=== PATIENT | female | born 1945 | race Caucasian/White ===

== ENCOUNTER 2024-11-06 15:35 | Inpatient (IN) | payer MEDICARE ==
--- NOTE | 2024-11-06 16:11 | ED ---
General Adult HPI - General Chief complaint: Shortness of Breath Stated complaint: SOB Time Seen by Provider: 11/06/24 15:51 Source: patient, EMS, RN notes reviewed, old records reviewed Mode of arrival: EMS Limitations: no limitations - History of Present Illness Initial comments: -year-old female presenting for evaluation of weakness, dyspnea. Patient has a history of congestive heart failure. She states she woke today with cough, dyspnea, mild frontal headache and subjective fever and chills. No central chest pain. - Related Data Allergies Allergy/AdvReac Type Severity Reaction Status Date / Time cephalexin [From Keflex] AdvReac Rash/Hives Verified 11/06/24 15:46 Review of Systems ROS Statement: Those systems with pertinent positive or pertinent negative responses have been documented in the HPI. ROS Other: All systems not noted in ROS Statement are negative. Past Medical History Past Medical History: Atrial Fibrillation, Heart Failure, Hypertension Past Surgical History: Orthopedic Surgery Additional Past Surgical History / Comment(s): bilat lumpectomy Past Psychological History: No Psychological Hx Reported Smoking Status: Never smoker Past Alcohol Use History: None Reported Past Drug Use History: None Reported General Exam Limitations: no limitations General appearance: alert, in no apparent distress Head exam: Present: atraumatic, normocephalic Eye exam: Present: normal appearance, PERRL ENT exam: Present: normal exam Neck exam: Present: normal inspection. Absent: tenderness, meningismus Respiratory exam: Present: rales. Absent: respiratory distress, rhonchi Cardiovascular Exam: Present: regular rate, normal rhythm GI/Abdominal exam: Present: soft. Absent: distended, tenderness Extremities exam: Present: other (Chronic venous stasis) Neurological exam: Present: alert, oriented X3, CN II-XII intact. Absent: motor sensory deficit Psychiatric exam: Present: normal affect, normal mood Skin exam: Present: warm, dry, intact. Absent: cyanosis, diaphoretic Course Vital Signs 11/06/24 11/06/24 15:37 15:50 Temperature 99.5 F Pulse Rate 85 Respiratory 30 H Rate O2 Sat by Pulse 93 L 92 L Oximetry Medical Decision Making - Medical Decision Making Was pt. sent in by a medical professional or institution (, PA, ETHNOLOGY TEACHER, urgent care, hospital, or residential...) When possible be specific @ -No Did you speak to anyone other than the patient for history (EMS, parent, family, police, friend...)? What history was obtained from this source @ -No Did you review nursing and triage notes (agree or disagree)? Why? @ -I reviewed and agree with nursing and triage notes Were old charts reviewed (outside hosp., previous admission, EMS record, old EKG, old radiological studies, urgent care reports/EKG's, residential records)? Report findings @ -No old charts were reviewed Differential Weakness: Hypoglycemia, shock, sepsis, hyponatremia, anemia, infection, [place], ETOH, adverse medicine reaction, overdose, stroke, this is not meant to be an all-inclusive list. EKG interpreted by me (3pts min.). @Sinus rhythm with a first-degree AV block, incomplete right bundle branch block, rate of 72, NC interval 261, QRS duration 109, QTc [address] segment elevation. X-rays interpreted by me (1pt min.). @ -Chest x-ray negative for consolidated pneumonia, consistent with CHF with pulmonary edema CT interpreted by me (1pt min.). @ -None done U/S interpreted by me (1pt. min.). @ -None done What testing was considered but not performed or refused? (CT, X-rays, U/S, labs)? Why? @ -None What meds were considered but not given or refused? Why? @ -None Did you discuss the management of the patient with other professionals (professionals i.e. , PA, ETHNOLOGY TEACHER, lab, RT, psych nurse, manager social responsibility, vp of product, teacher, appeals officer, case liner)? Give summary @ -Sound physician group Was smoking cessation discussed for >3mins.? @ -No Was critical care preformed (if so, how long)? @ -No Were there social determinants of health that impacted care today? How? (Homelessness, low income, unemployed, alcoholism, drug addiction, transportation, low edu. Level, literacy, decrease access to med. care, fdc, rehab)? @ -No Was there de-escalation of care discussed even if they declined (Discuss DNR or withdrawal of care, Hospice)? DNR status @ -No What co-morbidities impacted this encounter? (DM, HTN, Smoking, COPD, CAD, Cancer, CVA, ARF, Chemo, Hep., AIDS, mental health diagnosis, sleep apnea, morbid obesity)? @CHF Was patient admitted / discharged? Hospital course, mention meds given and route, prescriptions, significant lab abnormalities, going to OR and other pertinent info. @ --year-old78 female presenting with increased dyspnea history of CHF. Patient has bilateral venous stasis, she does have increased oxygen utilization. Elevated BNP at 4000, chest x-ray consistent with CHF. Patient admitted for IV diuresis. Undiagnosed new problem with uncertain prognosis? @ -No Drug Therapy requiring intensive monitoring for toxicity (Heparin, Nitro, Insulin, Cardizem)? @ -No Were any procedures done? @ -No Diagnosis/symptom? @ -[ CHF Acute, or Chronic, or Acute on Chronic? @ -Acute on chronic Uncomplicated (without systemic symptoms) or Complicated (systemic symptoms)? @ -Default Side effects of treatment? @ -No Exacerbation, Progression, or Severe Exacerbation? @ -No Poses a threat to life or bodily function? How? (Chest pain, [place], [place], pneumonia, PE, COPD, DKA, ARF, appy, cholecystitis, CVA, Diverticulitis, Homicidal, Suicidal, threat to staff... and all critical care pts) @ -Yes, CHF - Lab Data Result diagrams: 11/06/24 15:49 11/06/24 15:49 Lab Results 11/06/24 11/06/24 11/06/24 Range/Units 15:49 15:49 15:49 WBC 12.84 H (4.50-10.00) 10*3/uL RBC 4.93 (4.10-5.20) 10*6/uL Hgb 17.1 H (12.0-15.0) g/dL Hct 49.4 H (37.2-46.3) % MCV 100.2 H (80.0-97.0) fL MCH 34.7 H (27.0-32.0) pg MCHC 34.6 (32.0-37.0) g/dL Plt Count 151 (140-440) 10*3/uL MPV 10.2 (9.5-12.2) fL Immature Gran % (Auto) 0.5 % Neutrophils % 86.1 % Lymphocytes % 6.7 % Monocytes % 6.0 % Eosinophils % 0.3 % Basophils % 0.4 % Immature Gran # 0.06 H (0.00-0.04) 10*3/uL Neutrophils # 11.06 H (1.80-7.70) 10*3/uL Lymphocytes # 0.86 L (0.90-5.00) 10*3/uL Monocytes # 0.77 (0.20-1.00) 10*3/uL Eosinophils # 0.04 (0.04-0.35) 10*3/uL Basophils # 0.05 (0.00-0.10) 10*3/uL PT 11.5 (10.0-12.5) sec INR 1.1 (<1.2) APTT 25.6 (22.0-30.0) sec Sodium 141 (137-145) mmol/L Potassium 4.7 (3.5-5.1) mmol/L Chloride 105 (98-107) mmol/L Carbon Dioxide 29 (22-30) mmol/L Anion Gap 7 mmol/L BUN 22 H (7-17) mg/dL Creatinine 1.16 H (0.52-1.04) mg/dL Est GFR (CKD-EPI)AfAm 53 (>60 ml/min/1.73 sqM) Est GFR (CKD-EPI)NonAf 46 (>60 ml/min/1.73 sqM) Glucose 111 H (74-99) mg/dL Plasma Lactic Acid Simón (0.7-2.0) mmol/L Calcium 9.1 (8.4-10.2) mg/dL Magnesium 1.9 (1.6-2.3) mg/dL Total Bilirubin 1.5 H (0.2-1.3) mg/dL AST 29 (14-36) U/L ALT 21 (4-34) U/L Alkaline Phosphatase 86 (38-126) U/L Troponin I (0.000-0.034) ng/mL NT-Pro-B Natriuret Pep 4340 pg/mL Total Protein 7.7 (6.3-8.2) g/dL Albumin 4.2 (3.5-5.0) g/dL Influenza Type A (PCR) (Not Detectd) Influenza Type B (PCR) (Not Detectd) RSV (PCR) (Not Detectd) SARS-CoV-2 (PCR) (Not Detectd) 11/06/24 11/06/24 11/06/24 Range/Units 15:49 16:16 16:16 WBC (4.50-10.00) 10*3/uL RBC (4.10-5.20) 10*6/uL Hgb (12.0-15.0) g/dL Hct (37.2-46.3) % MCV (80.0-97.0) fL MCH (27.0-32.0) pg MCHC (32.0-37.0) g/dL Plt Count (140-440) 10*3/uL MPV (9.5-12.2) fL Immature Gran % (Auto) % Neutrophils % % Lymphocytes % % Monocytes % % Eosinophils % % Basophils % % Immature Gran # (0.00-0.04) 10*3/uL Neutrophils # (1.80-7.70) 10*3/uL Lymphocytes # (0.90-5.00) 10*3/uL Monocytes # (0.20-1.00) 10*3/uL Eosinophils # (0.04-0.35) 10*3/uL Basophils # (0.00-0.10) 10*3/uL PT (10.0-12.5) sec INR (<1.2) APTT (22.0-30.0) sec Sodium (137-145) mmol/L Potassium (3.5-5.1) mmol/L Chloride (98-107) mmol/L Carbon Dioxide (22-30) mmol/L Anion Gap mmol/L BUN (7-17) mg/dL Creatinine (0.52-1.04) mg/dL Est GFR (CKD-EPI)AfAm (>60 ml/min/1.73 sqM) Est GFR (CKD-EPI)NonAf (>60 ml/min/1.73 sqM) Glucose (74-99) mg/dL Plasma Lactic Acid Simón 1.3 (0.7-2.0) mmol/L Calcium (8.4-10.2) mg/dL Magnesium (1.6-2.3) mg/dL Total Bilirubin (0.2-1.3) mg/dL AST (14-36) U/L ALT (4-34) U/L Alkaline Phosphatase (38-126) U/L Troponin I 0.026 (0.000-0.034) ng/mL NT-Pro-B Natriuret Pep pg/mL Total Protein (6.3-8.2) g/dL Albumin (3.5-5.0) g/dL Influenza Type A (PCR) Not Detected (Not Detectd) Influenza Type B (PCR) Not Detected (Not Detectd) RSV (PCR) Not Detected (Not Detectd) SARS-CoV-2 (PCR) Not Detected (Not Detectd) Disposition Clinical Impression: Congestive heart failure Disposition: ADMITTED IP TO THIS [facility] Condition: Stable Is patient prescribed a controlled substance at d/c from ED?: No Referrals: Carlos Cordero DO [Primary Care Provider] - 1-2 days Time of Disposition: 17:08
[2024-11-06 16:24] LABS: Basophils # (A) 0.05 10*3/uL (0.00-0.10); Basophils % (A) 0.4 %; Eosinophils # (A) 0.04 10*3/uL (0.04-0.35); Eosinophils % (A) 0.3 %; HCT 49.4 % (37.2-46.3); HGB 17.1 g/dL (12.0-15.0); Lymphocytes # (A) 0.86 10*3/uL (0.90-5.00); Lymphocytes % (A) 6.7 %; MCH 34.7 pg (27.0-32.0); MCHC 34.6 g/dL (32.0-37.0); MCV 100.2 fL (80.0-97.0); Mean Platelet Volume 10.2 fL (9.5-12.2); Monocytes # (A) 0.77 10*3/uL (0.20-1.00); Neutrophils # (A) 11.06 10*3/uL (1.80-7.70); Neutrophils % (A) 86.1 %; Platelet Count 151 10*3/uL (140-440); RBC 4.93 10*6/uL (4.10-5.20); RDW 13.3 % (11.5-14.5); WBC 12.84 10*3/uL (4.50-10.00)
[2024-11-06 16:33] LABS: INR 1.1 (<1.2); Partial Thromboplastin Time 25.6 sec (22.0-30.0); Prothrombin Time 11.5 sec (10.0-12.5)
[2024-11-06 16:36] LABS: ALT 21 U/L (4-34); AST 29 U/L (14-36); African American GFR (CKD) 53 (>60 ml/min/1.73 sqM); Albumin 4.2 g/dL (3.5-5.0); Alkaline Phosphatase 86 U/L (38-126); Anion Gap 7 mmol/L; Blood Urea Nitrogen 22 mg/dL (7-17); Calcium 9.1 mg/dL (8.4-10.2); Carbon Dioxide 29 mmol/L (22-30); Chloride 105 mmol/L (98-107); Glucose 111 mg/dL (74-99); Magnesium 1.9 mg/dL (1.6-2.3); Non-African American GFR(CKD) 46 (>60 ml/min/1.73 sqM); Potassium 4.7 mmol/L (3.5-5.1); Sodium 141 mmol/L (137-145); Total Bilirubin 1.5 mg/dL (0.2-1.3); Total Protein 7.7 g/dL (6.3-8.2)
--- NOTE | 2024-11-06 16:36 | XR ---
EXAMINATION TYPE: XR chest 2V DATE OF EXAM: 11/06/2024 4:29 PM COMPARISON: None. CLINICAL INDICATION: Female, 78 years old with history of difficulty breathing, TECHNIQUE: XR chest 2V view(s) obtained. FINDINGS: The heart size is normal. The pulmonary vasculature is somewhat prominent. Diffuse mild increased lung markings are present. Correlate for pulmonary edema.. IMPRESSION: 1. Clinical correlation recommended for congestive heart failure. Follow-up can be performed. [facility], , 11/06/2024 4:34 PM
[2024-11-06] MEDS: ACETAMINOPHEN TAB 500 MG TAB PO STA (16:41)
[2024-11-06 16:44] LABS: NT-Pro-B-Type Natriuretic Pept 4340 pg/mL
[2024-11-06 17:00] LABS: Influenza A Not Detected (Not Detectd); Influenza B Not Detected (Not Detectd); RSV Not Detected (Not Detectd)
[2024-11-06] MEDS ORDERED: NALOXONE 0.4 MG/ML 1 ML VIAL IV PRN ×2 (17:04→17:40)
[2024-11-06] MEDS: FUROSEMIDE 10 MG/ML 4 ML VIAL IV STA (17:48)
--- NOTE | 2024-11-06 18:19 | P.HPIM ---
History of Present Illness H&P Date: 11/06/24 Chief Complaint: CHF exacerbation Patient is a [] 78-year-old female with a past medical history of congestive heart failure, atrial fibrillation anticoagulated on Eliquis, hypertension, depression, H/O breast cancer s/p lumpectomy and radiation who presented to the ED for shortness of breath chills and fever. She denies chest pain but does endorse leg swelling. States symptoms have been ongoing since yesterday and she had felt more fatigued than usual. She has been compliant with her diuretics. She follows with custom tailor apprentice Dr. Rodriguez and states she had a echo and stress test done a few months ago at his office. Vitals in the ED showed temperature of 99.5 Fahrenheit pulse of 85, respiratory rate of 30, and blood pressure of 129/60, oxygen saturation 93% on room air. Pertinent labs included WBC of 12.8, hemoglobin 17.1, platelets 151, sodium 141, potassium 4.7, creatinine 1.16, GFR 53, total bilirubin 1.5, troponins 0.026, BNP 4340, respiratory panel was negative. Chest x-ray which was independently reviewed by me shows pulmonary congestion consistent with edema. Patient was given 1 dose of IV Lasix 40 mg and will be admitted to the internal medicine service for IV diuresis Pertinent positives and negatives as discussed in HPI, a complete review of systems was performed and all other systems are negative. Patient seen and examined at bedside. Vital signs reviewed General: nontoxic, no distress, appears at stated age, on 2L NC O2 Derm: warm, dry Head: atraumatic, normocephalic, symmetric Eyes: EOMI, no lid lag, anicteric sclera, pupils equal round reactive to light ENT: Nose and ears atraumatic Neck: No thyromegaly, supple Mouth: no lip lesion, mucus membranes moist Cardiovascular: S1S2 reg, no murmur, no edema Lungs: diminished breath sounds, no rhonchi, no rales, no wheeze, no accessory muscle use Abdominal: soft, nontender to palpation, no guarding, no appreciable organomegaly Ext: Chronic venous dermatitis, 2+ pitting edema bilaterally Neuro: CN II-XII grossly intact Psych: Alert, oriented, appropriate affect Assessment/Plan: Acute heart failure exacerbation Cardiology consulted, given 1 dose of IV Lasix 40 mg in the ED we will continue with IV Lasix 40 mg every 12 hours Continue GDMT, on Farxiga lisinopril metoprolol Daily weights monitor I/O's Fluid and salt restriction advised Leukocytosis: No objective fever, chest x-ray not indicated of pneumonia, respiratory panel negative Will check UA and procalcitonin Elevated creatinine: Unclear if this is XIOMARA vs CKD -Careful diuresis -Repeat CMP in the AM -Avoid nephrotoxins Atrial fibrillation: Continue metoprolol and Eliquis Hypertension: Continue lisinopril metoprolol Depression: Continue sertraline and buspirone History of breast cancer status postlumpectomy and radiation: Continue anastrozole The patient is admitted with an anticipated greater than 2 midnight stay as [inpatient/observation] status for evaluation of CHF exacerbation. Surrogate decision-maker: CODE STATUS: full code DVT prophylaxis: Eliquis Anticipated discharge date: Pending clinical course Anticipated discharge place: Pending clinical course A total of 40 minutes was spent on the care of this complex patient more than 50% of the time was spent in counseling and care coordination. Past Medical History Past Medical History: Atrial Fibrillation, Heart Failure, Hypertension Past Surgical History: Orthopedic Surgery Additional Past Surgical History / Comment(s): bilat lumpectomy Past Psychological History: No Psychological Hx Reported Smoking Status: Never smoker Past Alcohol Use History: None Reported Past Drug Use History: None Reported Medications and Allergies Home Medications Medication Instructions Recorded Confirmed Type Anastrozole [Arimidex] 1 mg PO DAILY 11/06/24 11/06/24 History Apixaban [Eliquis] 2.5 mg PO BID 11/06/24 11/06/24 History Calcium Carbonate [Calcium] 600 mg PO DAILY 11/06/24 11/06/24 History Empagliflozin [Jardiance] 10 mg PO DAILY 11/06/24 11/06/24 History Furosemide [Lasix] 40 mg PO DAILY 11/06/24 11/06/24 History Metoprolol Succinate (ER) [Toprol 100 mg PO BID 11/06/24 11/06/24 History Xl] Multivitamins, Thera [Multivitamin 1 tab PO DAILY 11/06/24 11/06/24 History (formulary)] Potassium Chloride ER [K-Dur 20] 20 meq PO BID 11/06/24 11/06/24 History Sertraline [Zoloft] 100 mg PO DAILY 11/06/24 11/06/24 History busPIRone HCL 22.5 mg PO BID 11/06/24 11/06/24 History lisinopriL 10 mg PO DAILY 11/06/24 11/06/24 History Allergies Allergy/AdvReac Type Severity Reaction Status Date / Time cephalexin [From [employer]] Allergy Rash/Hives Verified 11/06/24 17:55 Physical Exam Vitals: Vital Signs Temp Pulse Resp BP Pulse Ox 11/06/24 17:24 98.9 F 74 20 129/60 95 11/06/24 15:50 92 L 11/06/24 15:37 99.5 F 85 30 H 93 L Intake and Output 11/06/24 11/06/24 11/06/24 06:59 14:59 22:59 Other: Weight 131.542 kg Results CBC & Chem 7: 11/06/24 15:49 11/06/24 15:49 Labs: Abnormal Lab Results - Last 24 Hours (Table) 11/06/24 11/06/24 Range/Units 15:49 15:49 WBC 12.84 H (4.50-10.00) 10*3/uL Hgb 17.1 H (12.0-15.0) g/dL Hct 49.4 H (37.2-46.3) % MCV 100.2 H (80.0-97.0) fL MCH 34.7 H (27.0-32.0) pg Immature Gran # 0.06 H (0.00-0.04) 10*3/uL Neutrophils # 11.06 H (1.80-7.70) 10*3/uL Lymphocytes # 0.86 L (0.90-5.00) 10*3/uL BUN 22 H (7-17) mg/dL Creatinine 1.16 H (0.52-1.04) mg/dL Glucose 111 H (74-99) mg/dL Total Bilirubin 1.5 H (0.2-1.3) mg/dL
[2024-11-06 18:33] LABS: Appearance,Urine Clear (Clear); Bilirubin,Urine Negative (Negative); Blood,Urine Negative (Negative); Color,Urine Colorless; Glucose,Urine (UA) 4+ (Negative); Ketones,Urine Negative (Negative); Leukocyte Esterase,Urine Negative (Negative); Nitrite,Urine Negative (Negative); PH, Urine 6.5 (5.0-8.0); Protein,Urine Negative (Negative); Specific Gravity,Urine 1.011 (1.001-1.035); Urobilinogen,Urine <2.0 mg/dL (<2.0)
[2024-11-06] MEDS: METOPROLOL SUCCINATE (ER) 100 MG TAB.ER.24H PO SCH (21:58)
[2024-11-06] MEDS: FUROSEMIDE 10 MG/ML 4 ML VIAL IV SCH (21:58)
[2024-11-06] MEDS: busPIRone HCl 10 MG TAB PO SCH (21:58)
[2024-11-06] MEDS: APIXABAN 5 MG TAB PO SCH (21:59)
[2024-11-06] MEDS: ACETAMINOPHEN TAB 325 MG TAB PO PRN (22:12)
[2024-11-06] MEDS: ONDANSETRON 4 MG/2 ML VIAL IVP PRN (22:18)
[2024-11-07] MEDS: ALBUMIN HUMAN 25% 50 ML in EMPTY BAG 1 BAG IVPB SCH (03:37)
[2024-11-07 07:54] LABS: Basophils # (A) 0.04 10*3/uL (0.00-0.10); Basophils % (A) 0.3 %; Eosinophils # (A) 0.02 10*3/uL (0.04-0.35); Eosinophils % (A) 0.1 %; HCT 44.7 % (37.2-46.3); Lymphocytes # (A) 0.73 10*3/uL (0.90-5.00); Lymphocytes % (A) 4.9 %; MCH 34.3 pg (27.0-32.0); MCHC 33.6 g/dL (32.0-37.0); MCV 102.3 fL (80.0-97.0); Mean Platelet Volume 9.9 fL (9.5-12.2); Monocytes # (A) 0.86 10*3/uL (0.20-1.00); Monocytes % (A) 5.8 %; Neutrophils # (A) 13.08 10*3/uL (1.80-7.70); Neutrophils % (A) 88.4 %; Platelet Count 126 10*3/uL (140-440); RBC 4.37 10*6/uL (4.10-5.20); RDW 13.4 % (11.5-14.5)
[2024-11-07] MEDS: SERTRALINE 100 MG TAB PO SCH (08:08)
[2024-11-07] MEDS: lisinopriL 10 MG TAB PO SCH (08:08)
[2024-11-07] MEDS: DAPAGLIFLOZIN PROPANEDIOL 5 MG TABLET PO SCH (08:09)
[2024-11-07] MEDS: ANASTROZOLE 1 MG TAB PO SCH (08:10)
[2024-11-07 08:21] LABS: ALT 16 U/L (4-34); AST 21 U/L (14-36); African American GFR (CKD) 46 (>60 ml/min/1.73 sqM); Albumin 3.7 g/dL (3.5-5.0); Alkaline Phosphatase 63 U/L (38-126); Anion Gap 7 mmol/L; Blood Urea Nitrogen 25 mg/dL (7-17); Calcium 8.7 mg/dL (8.4-10.2); Carbon Dioxide 33 mmol/L (22-30); Chloride 99 mmol/L (98-107); Glucose 147 mg/dL (74-99); Magnesium 1.8 mg/dL (1.6-2.3); Non-African American GFR(CKD) 40 (>60 ml/min/1.73 sqM); Potassium 4.2 mmol/L (3.5-5.1); Sodium 139 mmol/L (137-145); Total Bilirubin 2.2 mg/dL (0.2-1.3); Total Protein 6.8 g/dL (6.3-8.2)
--- NOTE | 2024-11-07 12:08 | P.CRDCN ---
History of Present Illness History of present illness: HISTORY OF PRESENT ILLNESS: This is a 78-year-old female with a past medical history significant for breast cancer, hypertension, hyperlipidemia, and congestive heart failure. Patient fol layton in the office with Dr. Rodriguez. We have been asked to see the patient in consultation for CHF. Patient examined at the bedside. Patient presented to the hospital with a chief complaint of feeling tired and not having any energy. She also reports having shortness of breath. She denied any chest pain or pressure. Patient was found to be in acute CHF and was started on IV Lasix. She reports improvement in her breathing today. She reports that she saw her primary central office mechanic at the beginning of this year. She reports having a chemical stress test and an echocardiogram at the beginning of this year which were normal to her knowledge DIAGNOSTICS: - EKG reveals sinus mechanism with no signs of acute ischemia. - Chest xray clinical correlation recommended for congestive heart failure. - Laboratory data: WBC 14.80. Hemoglobin 15.0. Platelet count 126. Sodium 139. Potassium 4.2. BUN 25. Creatinine 1.30. proBNP 4340. Troponin negative x 1. - Current home cardiac medications include Lasix 40 mg daily, Eliquis 2.5 mg twice a day, Jardiance 10 mg daily, lisinopril 10 mg daily, metoprolol succinate 100 mg twice daily. - No previous echocardiogram, stress test, or cardiac catheterization available in EMR for review REVIEW OF SYSTEMS: At the time of my exam: CONSTITUTIONAL: Denies fever or chills. HEENT: Denies blurred vision, vision changes, or eye pain. Denies hemoptysis CARDIOVASCULAR: Denies chest pain. Denies orthopnea. Denies PND. Denies palpitations RESPIRATORY: Denies shortness of breath. GASTROINTESTINAL: Denies abdominal pain. Denies nausea or vomiting. HEMATOLOGIC: Denies bleeding disorders. GENITOURINARY: Denies any blood in urine. SKIN: Denies pruitis. Denies rash. PHYSICAL EXAM: VITAL SIGNS: Reviewed. GENERAL: Well-developed in no acute distress. HEENT: Head is normocephalic. Pupils are equal, round. Sclerae anicteric. Mucous membranes of the mouth are moist. Neck supple. No JVD or thyromegaly LUNGS: Respirations even and unlabored. Lungs diminished bilaterally HEART: Regular rate and rhythm. S1 and S2 heard. ABDOMEN: Soft. Nondistended. Nontender. EXTREMITIES: Normal range of motion. No clubbing or cyanosis. Peripheral pulses intact. No lower extremity edema NEUROLOGIC: Awake and alert. Oriented x 3. ASSESSMENT: Shortness of breath Acute on chronic heart failure, type unknown, suspect preserved EF, echo pending History of hypertension History of hyperlipidemia History of breast cancer with lumpectomy PLAN: Obtain 2D echo to assess cardiac structure and function Dr. Kirkpatrick recommends outpatient hematology evaluation Continue IV Lasix. Decrease dosage to 40 mg daily. Likely transition to oral diuretics tomorrow Daily weights, accurate intake and output, monitoring of kidney function Continue additional cardiac medications including Eliquis Farxiga and metoprolol Further recommendations pending patient course Nurse practitioner note has been reviewed by physician. Signing provider agrees with the documented findings, assessment, and plan of care documented by CONSULTING NURSE as a scribe. Past Medical History Past Medical History: Atrial Fibrillation, Cancer, Heart Failure, Hypertension Additional Past Medical History / Comment(s): breast cancer x2 2003 in the right breast, 2020 in the left. History of Any Multi-Drug Resistant Organisms: None Reported Past Surgical History: Orthopedic Surgery Additional Past Surgical History / Comment(s): bilat lumpectomy Past Psychological History: No Psychological Hx Reported Smoking Status: Never smoker Past Alcohol Use History: None Reported Past Drug Use History: None Reported Medications and Allergies Home Medications Medication Instructions Recorded Confirmed Type Anastrozole [Arimidex] 1 mg PO DAILY 11/06/24 11/06/24 History Apixaban [Eliquis] 2.5 mg PO BID 11/06/24 11/06/24 History Calcium Carbonate [Calcium] 600 mg PO DAILY 11/06/24 11/06/24 History Empagliflozin [Jardiance] 10 mg PO DAILY 11/06/24 11/06/24 History Furosemide [Lasix] 40 mg PO DAILY 11/06/24 11/06/24 History Metoprolol Succinate (ER) [Toprol 100 mg PO BID 11/06/24 11/06/24 History Xl] Multivitamins, Thera [Multivitamin 1 tab PO DAILY 11/06/24 11/06/24 History (formulary)] Potassium Chloride ER [K-Dur 20] 20 meq PO BID 11/06/24 11/06/24 History Sertraline [Zoloft] 100 mg PO DAILY 11/06/24 11/06/24 History busPIRone HCL 22.5 mg PO BID 11/06/24 11/06/24 History lisinopriL 10 mg PO DAILY 11/06/24 11/06/24 History Allergies Allergy/AdvReac Type Severity Reaction Status Date / Time cephalexin [From Keflex] Allergy Rash/Hives Verified 11/06/24 17:55 Physical Exam Vitals: Vital Signs Temp Pulse Pulse Resp BP BP Pulse Ox 11/07/24 06:50 100.2 F H 57 L 17 93/61 91 L 11/07/24 01:15 100.1 F H 72 18 99/58 95 11/06/24 19:45 98.9 F 67 18 122/62 95 11/06/24 19:13 72 20 100/74 97 11/06/24 17:24 98.9 F 74 20 129/60 95 11/06/24 15:50 92 L 11/06/24 15:37 99.5 F 85 30 H 93 L Intake and Output 11/06/24 11/07/24 11/07/24 22:59 06:59 14:59 Output Total 700 800 Balance -700 -800 Output: Urine 700 800 Other: Voiding Method External Catheter External Catheter External Catheter Weight 131.542 kg 133 kg Results 11/07/24 07:44 11/07/24 07:44 Cardiac Enzymes 11/06/24 11/06/24 11/07/24 Range/Units 15:49 15:49 07:44 AST 29 21 (14-36) U/L Troponin I 0.026 (0.000-0.034) ng/mL Coagulation 11/06/24 Range/Units 15:49 PT 11.5 (10.0-12.5) sec APTT 25.6 (22.0-30.0) sec CBC 11/06/24 11/07/24 Range/Units 15:49 07:44 WBC 12.84 H 14.80 H (4.50-10.00) 10*3/uL RBC 4.93 4.37 (4.10-5.20) 10*6/uL Hgb 17.1 H 15.0 (12.0-15.0) g/dL Hct 49.4 H 44.7 (37.2-46.3) % Plt Count 151 126 L (140-440) 10*3/uL Comprehensive Metabolic Panel 11/06/24 11/07/24 Range/Units 15:49 07:44 Sodium 141 139 (137-145) mmol/L Potassium 4.7 4.2 (3.5-5.1) mmol/L Chloride 105 99 (98-107) mmol/L Carbon Dioxide 29 33 H (22-30) mmol/L BUN 22 H 25 H (7-17) mg/dL Creatinine 1.16 H 1.30 H (0.52-1.04) mg/dL Glucose 111 H 147 H (74-99) mg/dL Calcium 9.1 8.7 (8.4-10.2) mg/dL AST 29 21 (14-36) U/L ALT 21 16 (4-34) U/L Alkaline Phosphatase 86 63 (38-126) U/L Total Protein 7.7 6.8 (6.3-8.2) g/dL Albumin 4.2 3.7 (3.5-5.0) g/dL Current Medications Generic Name Dose Route Start Last Admin Trade Name Freq PRN Reason Stop Dose Admin Acetaminophen 650 mg 11/06/24 17:04 11/07/24 08:08 Acetaminophen Tab 325 Mg Tab PO 650 mg Q6HR PRN Administration Mild Pain or Fever > 100.5 Anastrozole 1 mg 11/07/24 09:00 11/07/24 08:10 Anastrozole 1 Mg Tab PO 1 mg DAILY HUSSEIN Administration Apixaban 5 mg 11/06/24 21:00 11/07/24 08:08 Apixaban 5 Mg Tab PO 5 mg BID HUSSEIN Administration Protocol Buspirone HCl 22.5 mg 11/06/24 21:00 11/07/24 08:09 Buspirone Hcl 10 Mg Tab PO 22.5 mg BID HUSSEIN Administration Dapagliflozin 5 mg 11/07/24 09:00 11/07/24 08:09 Dapagliflozin Propanediol 5 Mg Tablet PO 5 mg DAILY HUSSEIN Administration Furosemide 40 mg 11/06/24 21:00 11/07/24 08:08 Furosemide 10 Mg/Ml 4 Ml Vial IV 40 mg Q12HR HUSSEIN Administration Lisinopril 10 mg 11/07/24 09:00 11/07/24 08:08 Lisinopril 10 Mg Tab PO 10 mg DAILY HUSSEIN Administration Metoprolol Succinate 100 mg 11/06/24 21:00 11/07/24 08:09 Metoprolol Succinate (Er) 100 Mg Tab.Er.24h PO 100 mg BID HUSSEIN Administration Naloxone HCl 0.2 mg 11/06/24 17:04 Naloxone 0.4 Mg/Ml 1 Ml Vial IV Q2M PRN Opioid Reversal Naloxone HCl 0.2 mg 11/06/24 17:40 Naloxone 0.4 Mg/Ml 1 Ml Vial IV Q2M PRN Opioid Reversal Ondansetron HCl 4 mg 11/06/24 22:16 11/06/24 22:18 Ondansetron 4 Mg/2 Ml Vial IVP 4 mg Q6H PRN Administration Nausea Sertraline HCl 100 mg 11/07/24 09:00 11/07/24 08:08 Sertraline 100 Mg Tab PO 100 mg DAILY HUSSEIN Administration Intake and Output 11/06/24 11/07/24 11/07/24 22:59 06:59 14:59 Output Total 700 800 Balance -700 -800 Output: Urine 700 800 Other: Voiding Method External Catheter External Catheter External Catheter Weight 131.542 kg 133 kg 11/07/24 07:44 11/07/24 07:44
--- NOTE | 2024-11-07 16:35 | P.PN ---
Subjective Progress Note Date: 11/07/24 Hospital course: Patient is a very pleasant 78-year-old female with a past medical history of congestive heart failure, paroxysmal atrial fibrillation anticoagulated on Eliquis, hypertension, depression, H/O breast cancer s/p lumpectomy and radiation who presented to the ED on 11/06/2024 for shortness of breath, bilateral lower extremity edema and fatigue. Patient reported she has been compliant with her diuretics and follows with life educator Dr. Rodriguez and states she had a echo and stress test done a few months ago at his office. Upon arrival to our facility, patient underwent evaluation in the emergency department. Vital signs on arrival show blood pressure 129/60, heart rate 85, respiratory rate 30, temp 99.5 F, and SpO2 of 93% on room air. EKG completed showing normal sinus rhythm at 72 bpm. Chest x-ray showing prominent pulmonary vasculature with diffuse mild increased lung markings consistent with pulmonary edema. Labs completed and reviewed. CBC showing leukocytosis with WBC count of 12.84, hemoglobin 17.1, hematocrit 49.4, MCV and MCH of 34.7. Of 100.2, BMP showing elevated renal function with BUN of 22, creatinine 1.16, GFR 46. Blood glucose 111. Liver profile showing hyperbilirubinemia with total bili of 1.5. Troponin 0.026 and proBNP 4340. Influenza A, influenza B, RSV, and COVID PCR negative. Procalcitonin negative at less than 0.20. Physical exam: Patient seen and fully evaluated at bedside this morning. She reports breathing is slightly better from arrival to our facility. She denies having any chest pain, palpitations, productive cough, abdominal pain, nausea, vomiting, or any other complaints at this time. Vital signs reviewed and stable. General: Nontoxic, no distress and appears stated age. Derm: Skin warm and dry, normal coloration for ethnicity. Head: Atraumatic, normocephalic and symmetric. Eyes: EOM's intact, no lid lag, and anicteric sclera Mouth: no lip lesions, mucus membranes moist Cardiovascular: regular rate and rhythm with normal S1S2, no murmur, positive posterior tibial pulses bilaterally, and cap refill < 2 seconds. Lungs: Respirations even, regular, and unlabored on liters O2 via nasal cannula. Lungs diminished, no rhonchi, no rales, no wheezing, and no accessory muscle usage. Abdominal: soft, nontender to palpation, no guarding, no appreciable organomegaly Ext: No gross muscle atrophy, 1+ pitting bilateral lower extremity edema with venous stasis discoloration. Movement and sensation intact. Neuro: Speech clear, face symmetrical and CN II-XII grossly intact with no noted focal neuro deficits Psych: Alert and oriented to person, place, time, and situation. Appropriate and pleasant affect. Assessment and Plan of Care: Acute heart failure exacerbation, unknown type pending echocardiogram Paroxysmal atrial fibrillation Hypertension Hyperlipidemia -Cardiology following, discussed plan of care with cardiac NATURAL GAS TRADER. -Telemetry monitoring -Daily weights with Close monitoring of I's and O's -Lasix 40 mg IVP twice daily -Continue daily medication regimen with Eliquis 5 mg twice daily, Farxiga 5 mg daily, lisinopril 10 mg daily, and metoprolol 100 mg twice daily. -Continued close monitoring of electrolytes while diuresing. -Order placed for echocardiogram. History of breast cancer status postlumpectomy and radiation -Continue anastrozole 1 mg daily Anxiety with depression -Continue BuSpar 22.5 mg twice daily and Zoloft 100 mg daily. Hyperbilirubinemia Unclear cause, possibly hepatic congestion. Patient denies abdominal pain/discomfort. Will place order for ultrasound gallbladder secondary to leukocytosis, hyperbilirubinemia, low-grade temp this morning. - Will continue to monitor with repeat a.m. labs. Data and imaging reviewed: Vital signs reviewed. Blood pressure 93/61, heart rate 57, respiratory rate 17, temp 100.2 F, and SpO2 of 91% on 2 L. - Labs completed and reviewed. Showing leukocytosis with WBC count of 14.80, MCV 102.3, and MCH of 34.3 with thrombocytopenia with platelet count of 126. BMP showing hypercarbia with bicarb of 33 and slightly worsening renal function with BUN of 25, creatinine of 1.30, GFR 40. Blood glucose 147. Magnesium 1.8. Total bili elevating at 2.2. CODE STATUS: Full code DVT prophylaxis: Carmenquterry Discussed with: Patient, RN, and cardiac NATURAL GAS TRADER Anticipated discharge date: Pending clinical course Anticipated discharge place: Home Patient was seen independently by Nurse Pracitioner. This document was prepared using [employer] dictation software. Please allow for errors in investment trader, while rare they do occur. Amos Kat, NATURAL GAS TRADER rendered care for this patient independently, reviewed the findings and plan as documented in the note above and agree with plan. I did not physically speak with or examine the patient on this date. Objective - Vital Signs Vital signs: Vital Signs Temp 100.2 F H 11/07/24 06:50 Pulse 57 L 11/07/24 06:50 Resp 17 11/07/24 06:50 BP 93/61 11/07/24 06:50 Pulse Ox 91 L 11/07/24 06:50 FiO2 Intake & Output 11/06/24 11/07/24 11/07/24 18:59 06:59 18:59 Output Total 1500 Balance -1500 Weight 131.542 kg 133 kg Output: Urine 1500 Other: Voiding Method External Catheter - Labs CBC & Chem 7: 11/07/24 07:44 11/07/24 07:44 Labs: Abnormal Lab Results - Last 24 Hours (Table) 11/06/24 11/06/24 11/06/24 Range/Units 15:49 15:49 18:24 WBC 12.84 H (4.50-10.00) 10*3/uL Hgb 17.1 H (12.0-15.0) g/dL Hct 49.4 H (37.2-46.3) % MCV 100.2 H (80.0-97.0) fL MCH 34.7 H (27.0-32.0) pg Plt Count (140-440) 10*3/uL Immature Gran # 0.06 H (0.00-0.04) 10*3/uL Neutrophils # 11.06 H (1.80-7.70) 10*3/uL Lymphocytes # 0.86 L (0.90-5.00) 10*3/uL Eosinophils # (0.04-0.35) 10*3/uL BUN 22 H (7-17) mg/dL Creatinine 1.16 H (0.52-1.04) mg/dL Glucose 111 H (74-99) mg/dL Total Bilirubin 1.5 H (0.2-1.3) mg/dL Urine Glucose (UA) 4+ H (Negative) 11/07/24 Range/Units 07:44 WBC 14.80 H (4.50-10.00) 10*3/uL Hgb (12.0-15.0) g/dL Hct (37.2-46.3) % MCV 102.3 H (80.0-97.0) fL MCH 34.3 H (27.0-32.0) pg Plt Count 126 L (140-440) 10*3/uL Immature Gran # 0.07 H (0.00-0.04) 10*3/uL Neutrophils # 13.08 H (1.80-7.70) 10*3/uL Lymphocytes # 0.73 L (0.90-5.00) 10*3/uL Eosinophils # 0.02 L (0.04-0.35) 10*3/uL BUN (7-17) mg/dL Creatinine (0.52-1.04) mg/dL Glucose (74-99) mg/dL Total Bilirubin (0.2-1.3) mg/dL Urine Glucose (UA) (Negative)
[2024-11-08 07:23] LABS: HCT 47.3 % (37.2-46.3); HGB 15.7 g/dL (12.0-15.0); Immature Platelet Fraction 3.4 % (1.1-6.1); MCH 34.3 pg (27.0-32.0); MCHC 33.2 g/dL (32.0-37.0); MCV 103.3 fL (80.0-97.0); Mean Platelet Volume 10.5 fL (9.5-12.2); Platelet Count 127 10*3/uL (140-440); RBC 4.58 10*6/uL (4.10-5.20); RDW 13.5 % (11.5-14.5); WBC 11.03 10*3/uL (4.50-10.00)
[2024-11-08 07:47] LABS: ALT 14 U/L (4-34); AST 18 U/L (14-36); African American GFR (CKD) 41 (>60 ml/min/1.73 sqM); Albumin 3.4 g/dL (3.5-5.0); Alkaline Phosphatase 72 U/L (38-126); Anion Gap 6 mmol/L; Blood Urea Nitrogen 31 mg/dL (7-17); Calcium 8.7 mg/dL (8.4-10.2); Carbon Dioxide 35 mmol/L (22-30); Chloride 98 mmol/L (98-107); Glucose 92 mg/dL (74-99); Magnesium 2.1 mg/dL (1.6-2.3); Non-African American GFR(CKD) 36 (>60 ml/min/1.73 sqM); Potassium 4.8 mmol/L (3.5-5.1); Sodium 139 mmol/L (137-145); Total Bilirubin 1.6 mg/dL (0.2-1.3); Total Protein 6.6 g/dL (6.3-8.2)
--- NOTE | 2024-11-08 08:05 | US ---
EXAMINATION TYPE: US gallbladder DATE OF EXAM: 11/08/2024 COMPARISON: NONE CLINICAL INDICATION: Female, 78 years old with history of low grade temp, leukocytosis, and hyperbili rubinem; hyperbilirubinem TECHNIQUE: Grayscale and color Doppler imaging of the right upper quadrant was performed. FINDINGS: EXAM MEASUREMENTS: Liver Length: 20.0 cm Gallbladder Wall: 0.2 cm CBD: 1.0 cm Right Kidney: 11.3x3.8x4.9 cm CHIEF ENGINEER WATERWORKS NOTES: Pancreas: Tail obscured by overlying bowel gas, cystic area at the body measures 1.0x0.7x0.8cm Liver: hepatomegaly, scattered echogenic foci, heterogenous, lobular contour Gallbladder: mobile echogenic focus 1 cm Evidence for sonographic Sears's sign: No CBD: dilated Right Kidney: wnl exam limited by bowel gas and body habitus IMPRESSION: 1. Small cystlike area within the posterior body of the pancreas. Neoplasm is not excluded. Additiona l workup is recommended with MRI. 2. Cholelithiasis. 3. Hepatomegaly with mild fatty infiltration of liver. [facility], , 11/08/2024 8:03 AM
[2024-11-08] MEDS: FUROSEMIDE 10 MG/ML 4 ML VIAL IV SCH (09:25)
[2024-11-08] MEDS: METOPROLOL SUCCINATE (ER) 50 MG TAB.ER.24H PO SCH (09:39)
--- NOTE | 2024-11-08 12:10 | P.PN ---
Subjective HISTORY OF PRESENT ILLNESS: This is a 78-year-old female with a past medical history significant for breast cancer, hypertension, hyperlipidemia, and congestive heart failure. Patient follows in the office with Dr. Rodriguez. We have been asked to see the patient in consultation for CHF. Patient examined at the bedside. Patient presented to the hospital with a chief complaint of feeling tired and not having any energy. She also reports having shortness of breath. She denied any chest pain or pressure. Patient was found to be in acute CHF and was started on IV Lasix. She reports improvement in her breathing today. She reports that she saw her primary director of science at the beginning of this year. She reports having a chemical stress test and an echocardiogram at the beginning of this year which were normal to her knowledge DIAGNOSTICS: - EKG reveals sinus mechanism with no signs of acute ischemia. - Chest xray clinical correlation recommended for congestive heart failure. - Laboratory data: WBC 14.80. Hemoglobin 15.0. Platelet count 126. Sodium 139. Potassium 4.2. BUN 25. Creatinine 1.30. proBNP 4340. Troponin negative x 1. - Current home cardiac medications include Lasix 40 mg daily, Eliquis 2.5 mg twice a day, Jardiance 10 mg daily, lisinopril 10 mg daily, metoprolol succinate 100 mg twice daily. - No previous echocardiogram, stress test, or cardiac catheterization available in EMR for review 11/08/2024 Patient examined this morning at bedside. Patient currently denies chest pain or pressure. She reports improvement in her shortness of breath. She remains on IV Lasix. Creatinine today increased to 1.43. Blood pressure in the 90s. Patient still requiring supplemental oxygen to maintain oxygen saturations greater than 92%. Gallbladder ultrasound completed revealing small cystlike area within the posterior body of the pancreas. Neoplasm not excluded. PHYSICAL EXAM: VITAL SIGNS: Reviewed. GENERAL: Well-developed in no acute distress. HEENT: Head is normocephalic. Pupils are equal, round. Sclerae anicteric. Mucous membranes of the mouth are moist. Neck supple. No JVD or thyromegaly LUNGS: Respirations even and unlabored. Lungs diminished bilaterally HEART: Regular rate and rhythm. S1 and S2 heard. ABDOMEN: Soft. Nondistended. Nontender. EXTREMITIES: Normal range of motion. No clubbing or cyanosis. Peripheral pulses intact. No lower extremity edema NEUROLOGIC: Awake and alert. Oriented x 3. ASSESSMENT: Shortness of breath Acute on chronic heart failure, type unknown, suspect preserved EF, echo pending Acute kidney injury Acute hypoxic respiratory failure requiring supplemental oxygen Borderline hypotension Pancreatic cyst, neoplasm not excluded per ultrasound History of hypertension History of hyperlipidemia History of breast cancer with lumpectomy PLAN: 2D echo ordered. Await results. Discontinue Lasix for today. Begin oral Lasix 40 mg starting tomorrow Decrease metoprolol succinate to 50 mg twice a day Obtain chest x-ray Continue to monitor kidney function. Repeat in AM. Oncology consulted. MRI of the pancreas pending. Further recommendations pending patient course Nurse practitioner note has been reviewed by physician. Signing provider agrees with the documented findings, assessment, and plan of care documented by AWNING MAKER as a scribe. Objective - Vital Signs Vital signs: Vital Signs Temp 97.7 F 11/08/24 07:31 Pulse 60 11/08/24 07:31 Resp 16 11/08/24 07:31 BP 97/48 11/08/24 07:31 Pulse Ox 85 L 11/08/24 09:00 FiO2 Intake & Output 11/07/24 11/08/24 11/08/24 18:59 06:59 18:59 Output Total 800 500 Balance -800 -500 Weight 133 kg Output: Urine 800 500 Other: Voiding Method External Catheter External Catheter External Catheter # Bowel Movements 1 - Labs CBC & Chem 7: 11/08/24 06:46 11/08/24 06:46 Labs: Abnormal Lab Results - Last 24 Hours (Table) 11/08/24 11/08/24 Range/Units 06:46 06:46 WBC 11.03 H (4.50-10.00) 10*3/uL Hgb 15.7 H (12.0-15.0) g/dL Hct 47.3 H (37.2-46.3) % MCV 103.3 H (80.0-97.0) fL MCH 34.3 H (27.0-32.0) pg Plt Count 127 L (140-440) 10*3/uL Carbon Dioxide 35 H (22-30) mmol/L BUN 31 H (7-17) mg/dL Creatinine 1.43 H (0.52-1.04) mg/dL Total Bilirubin 1.6 H (0.2-1.3) mg/dL Albumin 3.4 L (3.5-5.0) g/dL
[2024-11-08] MEDS: polyethylene glycoL 3350 17 GM POWD.PACK PO SCH (14:00)
--- NOTE | 2024-11-08 15:16 | XR ---
EXAMINATION TYPE: XR chest 2V DATE OF EXAM: 11/08/2024 10:21 AM COMPARISON: 11/06/2024 CLINICAL INDICATION: Female, 78 years old with history of SOB, TECHNIQUE: XR chest 2V view(s) obtained. FINDINGS: The heart size is normal. The pulmonary vasculature is somewhat prominent. No suspicious focal consolidation is evident. IMPRESSION: 1. Some early volume overload could be considered. 2. No acute pulmonary process otherwise evident. [facility], , 11/08/2024 3:14 PM
--- NOTE | 2024-11-08 15:44 | P.PN ---
Subjective Progress Note Date: 11/08/24 Hospital Course: Patient is a very pleasant 78-year-old female with a past medical history of congestive heart failure, paroxysmal atrial fibrillation anticoagulated on Eliquis, hypertension, depression, H/O breast cancer s/p lumpectomy and radiation who presented to the ED on 11/06/2024 for shortness of breath, bilateral lower extremity edema and fatigue. Patient reported she has been compliant with her diuretics and follows with film laboratory technician Dr. Rodriguez and states she had a echo and stress test done a few months ago at his office. Upon arrival to our facility, patient underwent evaluation in the emergency department. Vital signs on arrival show blood pressure 129/60, heart rate 85, respiratory rate 30, temp 99.5 F, and SpO2 of 93% on room air. EKG completed showing normal sinus rhythm at 72 bpm. Chest x-ray showing prominent pulmonary vasculature with diffuse mi ld increased lung markings consistent with pulmonary edema. Labs completed and reviewed. CBC showing leukocytosis with WBC count of 12.84, hemoglobin 17.1, hematocrit 49.4, MCV and MCH of 34.7. Of 100.2, BMP showing elevated renal function with BUN of 22, creatinine 1.16, GFR 46. Blood glucose 111. Liver profile showing hyperbilirubinemia with total bili of 1.5. Troponin 0.026 and proBNP 4340. Influenza A, influenza B, RSV, and COVID PCR negative. Procalcitonin negative at less than 0.20. Order was placed for gallbladder ultrasound secondary to leukocytosis, hyperbilirubinemia, and low-grade fever. Incidental finding on gallbladder ultrasound revealed a small cystlike area within the posterior body of the pancreas unable to rule out neoplastic process. Patient does have a known history of breast cancer. Physical exam: Patient seen and fully evaluated at bedside this morning. She is currently resting comfortably on 2 L O2 via nasal cannula with SpO2 of 96%. She reports improvement of shortness of breath and continues to deny having any chest pain, palpitations, abdominal pain, nausea, or vomiting. Patient updated on findings of gallbladder ultrasound and plans for MR/MRCP of pancreas. Vital signs reviewed and stable. General: Nontoxic, no distress and appears stated age. Derm: Skin warm and dry, normal coloration for ethnicity. Head: Atraumatic, normocephalic and symmetric. Eyes: EOM's intact, no lid lag, and anicteric sclera Mouth: no lip lesions, mucus membranes moist Cardiovascular: regular rate and rhythm with normal S1S2, no murmur, positive posterior tibial pulses bilaterally, and cap refill < 2 seconds. Lungs: Respirations even, regular, and unlabored on liters O2 via nasal cannula. Lungs diminished, no rhonchi, no rales, no wheezing, and no accessory muscle usage. Abdominal: soft, nontender to palpation, no guarding, no appreciable organomegaly Ext: No gross muscle atrophy, scant bilateral lower extremity edema with venous stasis discoloration. Movement and sensation intact. Neuro: Speech clear, face symmetrical and CN II-XII grossly intact with no noted focal neuro deficits Psych: Alert and oriented to person, place, time, and situation. Appropriate and pleasant affect. Assessment and Plan of Care: Acute heart failure exacerbation, unknown type pending echocardiogram Paroxysmal atrial fibrillation Hypertension Hyperlipidemia -Cardiology following, discussed plan of care with cardiac PURIFYING PLANT OPERATOR and transitioning patient to oral diuretic with Lasix 40 mg daily today. -Telemetry monitoring -Daily weights with Close monitoring of I's and O's -Continue daily medication regimen with Eliquis 5 mg twice daily, Farxiga 5 mg daily, lisinopril 10 mg daily, and metoprolol 100 mg twice daily. -Continued close monitoring of electrolytes while diuresing. -Awaiting completion of echocardiogram. Pancreatic cystlike area, Incidental Finding Hyperbilirubinemia Thrombocytopenia Polycythemia - Order was placed for gallbladder ultrasound secondary to leukocytosis, hyperbilirubinemia, and low-grade fever. Incidental finding on gallbladder ultrasound revealed a small cystlike area within the posterior body of the pancreas unable to rule out neoplastic process. Patient does have a known history of breast cancer. - Consult placed to oncology. Discussed findings with oncology PURIFYING PLANT OPERATOR and per their recommendations order placed for MRI/MRCP of pancreas for further evaluation. History of breast cancer status postlumpectomy and radiation -Continue anastrozole 1 mg daily Anxiety with depression -Continue BuSpar 22.5 mg twice daily and Zoloft 100 mg daily. Data and imaging reviewed: Vital signs reviewed. Blood pressure 93/61, heart rate 57, respiratory rate 17, temp 100.2 F, and SpO2 of 91% on 2 L. - Labs completed and reviewed. CBC showing leukocytosis improving from 14.80 down to 11.03, hemoglobin 15.7, and platelet count of 127. BMP showing hypercarbia with bicarb of 35 and slightly worsening renal function with BUN of 31, creatinine 1.43, GFR of 36. Blood glucose 92. Magnesium 2.1. Liver profile showing slight improvement of hyperbilirubinemia from previous 2.2 down to 1.6 this morning. Gallbladder ultrasound completed and reviewed. Incidental finding on gallbladder ultrasound revealed a small cystlike area within the posterior body of the pancreas unable to rule out neoplastic process. CODE STATUS: Full code DVT prophylaxis: Eliquis Discussed with: Patient, RN, oncology PURIFYING PLANT OPERATOR and cardiac PURIFYING PLANT OPERATOR Anticipated discharge date: Pending clinical course Anticipated discharge place: Home Patient was seen independently by Nurse Pracitioner. This document was prepared using [employer] dictation software. Please allow for errors in cash applications coordinator, while rare they do occur. Amos Stephens, PURIFYING PLANT OPERATOR rendered care for this patient independently, reviewed the findings and plan as documented in the note above and agree with plan. I did not physically speak with or examine the patient on this date. Objective - Vital Signs Vital signs: Vital Signs Temp 97.7 F 11/08/24 07:31 Pulse 60 11/08/24 07:31 Resp 16 11/08/24 07:31 BP 97/48 11/08/24 07:31 Pulse Ox 96 11/08/24 07:31 FiO2 Intake & Output 11/07/24 11/08/24 11/08/24 18:59 06:59 18:59 Output Total 800 500 Balance -800 -500 Weight 133 kg Output: Urine 800 500 Other: Voiding Method External Catheter External Catheter # Bowel Movements 1 - Labs CBC & Chem 7: 11/08/24 06:46 11/08/24 06:46 Labs: Abnormal Lab Results - Last 24 Hours (Table) 11/08/24 11/08/24 Range/Units 06:46 06:46 WBC 11.03 H (4.50-10.00) 10*3/uL Hgb 15.7 H (12.0-15.0) g/dL Hct 47.3 H (37.2-46.3) % MCV 103.3 H (80.0-97.0) fL MCH 34.3 H (27.0-32.0) pg Plt Count 127 L (140-440) 10*3/uL Carbon Dioxide 35 H (22-30) mmol/L BUN 31 H (7-17) mg/dL Creatinine 1.43 H (0.52-1.04) mg/dL Total Bilirubin 1.6 H (0.2-1.3) mg/dL Albumin 3.4 L (3.5-5.0) g/dL
--- NOTE | 2024-11-08 21:17 | P.CONS ---
History of Present Illness - Reason for Consult Consult date: 11/08/24 pancreatic abnormality on imaging Requesting physician: Amos Stephens - Chief Complaint SOB, dyspnea on exertion - History of Present Illness Mrs. Wolf is a pleasant 78 yo female we have been asked to see because of incidental finding on imaging. Reported increased fatigue and shortness of breath which is what brought her to the hospital. She was experiencing low- grade fevers 100.2, 100.1, also slightly elevated WBC and bilirubin was noted so, gallbladder ultrasound was preformed. This reported a 20 cm liver length and a small cystlike area within the posterior body of the pancreas, neoplasm not excluded. Laboratory investigations show hemoglobin slightly elevated, though this has come down since admission, possibly hemoconcentration? She is macro cytic, mild thrombocytopenia, platelets 120,000 range. BUN and creatinine both slightly elevated, this has slightly worsened since admission. Bilirubin at its highest 2.2, today 1.6 She reports low grade fevers have been occurring over the last week, no overt fevers, energy levels and appetite are baseline, no oral irritation, chest pain, abd pain, radiating pain, acute changes in bowel or bladder habits. She has a history of breast cancer. 20 years ago on the right, treated with lumpectomy, chemo and radiation. She was also diagnosed 3 years ago on the left, treated with lumpectomy and radiation only. Review of Systems 10 point ROS is neg except as stated in HPI Past Medical History Past Medical History: Atrial Fibrillation, Cancer, Heart Failure, Hypertension Additional Past Medical History / Comment(s): breast cancer x2 2003 in the right breast, 2020 in the left. History of Any Multi-Drug Resistant Organisms: None Reported Past Surgical History: Orthopedic Surgery Additional Past Surgical History / Comment(s): bilat lumpectomy Past Psychological History: No Psychological Hx Reported Smoking Status: Never smoker Past Alcohol Use History: None Reported Past Drug Use History: None Reported Medications and Allergies Home Medications Medication Instructions Recorded Confirmed Type Anastrozole [Arimidex] 1 mg PO DAILY 11/06/24 11/06/24 History Apixaban [Eliquis] 2.5 mg PO BID 11/06/24 11/06/24 History Calcium Carbonate [Calcium] 600 mg PO DAILY 11/06/24 11/06/24 History Empagliflozin [Jardiance] 10 mg PO DAILY 11/06/24 11/06/24 History Furosemide [Lasix] 40 mg PO DAILY 11/06/24 11/06/24 History Metoprolol Succinate (ER) [Toprol 100 mg PO BID 11/06/24 11/06/24 History Xl] Multivitamins, Thera [Multivitamin 1 tab PO DAILY 11/06/24 11/06/24 History (formulary)] Potassium Chloride ER [K-Dur 20] 20 meq PO BID 11/06/24 11/06/24 History Sertraline [Zoloft] 100 mg PO DAILY 11/06/24 11/06/24 History busPIRone HCL 22.5 mg PO BID 11/06/24 11/06/24 History lisinopriL 10 mg PO DAILY 11/06/24 11/06/24 History Allergies Allergy/AdvReac Type Severity Reaction Status Date / Time cephalexin [From Keflex] Allergy Rash/Hives Verified 11/06/24 17:55 Physical Exam Vitals: Vital Signs Temp Pulse Resp BP Pulse Ox 11/08/24 15:00 98.2 F 70 17 107/75 96 11/08/24 09:00 85 L 11/08/24 07:31 97.7 F 60 16 97/48 96 11/08/24 02:00 98 F 66 17 112/64 95 11/07/24 19:36 100 F H 67 17 103/68 95 Intake and Output 11/08/24 11/08/24 11/08/24 06:59 14:59 22:59 Output Total 200 550 Balance -200 -550 Output: Urine 200 550 Other: Voiding Method External Catheter External Catheter # Bowel Movements 1 1 - Constitutional General appearance: cooperative, no acute distress, obese - EENT Eyes: anicteric sclerae, EOMI ENT: hearing grossly normal, normal oropharynx - Neck Neck: no lymphadenopathy - Respiratory Respiratory: bilateral: diminished - Cardiovascular Rhythm: regular Heart sounds: normal: S1, S2 Abnormal Heart Sounds: no systolic murmur, no diastolic murmur, no rub, no S3 Gallop, no S4 Gallop, no click, no other leg Peripheral Edema: bilateral: Trace - Gastrointestinal General gastrointestinal: no absent bowel sounds, no decreased bowel sounds, distended, no hepatomegaly, no hyperactive bowel sounds, normal bowel sounds, no organomegaly, no rigid, no scaphoid, soft, no splenomegaly, no tenderness, no umbilical hernia, no ventral hernia - Integumentary Integumentary: normal - Neurologic Neurologic: CNII-XII intact - Musculoskeletal Musculoskeletal: strength equal bilaterally - Psychiatric Psychiatric: A&O x's 3, appropriate affect, intact judgment & insight Results CBC & Chem 7: 11/08/24 06:46 11/08/24 06:46 Labs: Abnormal Lab Results - Last 24 Hours (Table) 11/08/24 11/08/24 Range/Units 06:46 06:46 WBC 11.03 H (4.50-10.00) 10*3/uL Hgb 15.7 H (12.0-15.0) g/dL Hct 47.3 H (37.2-46.3) % MCV 103.3 H (80.0-97.0) fL MCH 34.3 H (27.0-32.0) pg Plt Count 127 L (140-440) 10*3/uL Carbon Dioxide 35 H (22-30) mmol/L BUN 31 H (7-17) mg/dL Creatinine 1.43 H (0.52-1.04) mg/dL Total Bilirubin 1.6 H (0.2-1.3) mg/dL Albumin 3.4 L (3.5-5.0) g/dL US - abdomen: report reviewed (gallbladder US) Assessment and Plan (1) Pancreatic abnormality Current Visit: Yes Status: Acute Priority: High Code(s): Q45.3 - [facility] CONGENITAL MALFORMATIONS OF PANCREAS AND PANCREATIC DUCT SNOMED Code(s): 5704691 Plan: Pancreatic abnormality - Patient admitted with complaints of shortness of breath. She was noted to have low-grade fevers, slightly elevated white count and elevated bilirubin. This led to further investigations. Gallbladder ultrasound reports liver at 20 cm, also a concerning finding in the pancreatic head. - Case discussed with Internal Medicine Nurse Practitioner. Plans at this time are to obtain MRCP to further clarify the finding in the pancreatic head. Based on those findings further recommendations will follow. If it appears that the lesion in the pancreas is concerning for malignancy and if no other unusual findings are noted in the area, it would be best for patient to be referred for surgical evaluation-biopsy, possible Whipple. -The above was reviewed with the patient. She verbalized understanding. She is agreeable to further workup.
[2024-11-09 06:56] LABS: HCT 46.6 % (37.2-46.3); HGB 15.3 g/dL (12.0-15.0); MCHC 32.8 g/dL (32.0-37.0); MCV 103.6 fL (80.0-97.0); Mean Platelet Volume 10.2 fL (9.5-12.2); Platelet Count 143 10*3/uL (140-440); RDW 13.2 % (11.5-14.5); WBC 6.58 10*3/uL (4.50-10.00)
[2024-11-09 07:27] LABS: ALT 14 U/L (4-34); AST 19 U/L (14-36); African American GFR (CKD) 45 (>60 ml/min/1.73 sqM); Albumin 3.2 g/dL (3.5-5.0); Alkaline Phosphatase 74 U/L (38-126); Anion Gap 5 mmol/L; Blood Urea Nitrogen 29 mg/dL (7-17); Calcium 8.9 mg/dL (8.4-10.2); Carbon Dioxide 36 mmol/L (22-30); Chloride 97 mmol/L (98-107); Glucose 94 mg/dL (74-99); Magnesium 2.3 mg/dL (1.6-2.3); Non-African American GFR(CKD) 39 (>60 ml/min/1.73 sqM); Potassium 5.3 mmol/L (3.5-5.1); Sodium 138 mmol/L (137-145); Total Bilirubin 1.5 mg/dL (0.2-1.3); Total Protein 6.4 g/dL (6.3-8.2)
[2024-11-09] MEDS: FUROSEMIDE 40 MG TAB PO SCH (08:27)
--- NOTE | 2024-11-09 10:52 | P.PN ---
Subjective HISTORY OF PRESENT ILLNESS: This is a 78-year-old female with a past medical history significant for breast cancer, hypertension, hyperlipidemia, and congestive heart failure. Patient follows in the office with Dr. Rodriguez. We have been asked to see the patient in consultation for CHF. Patient examined at the bedside. Patient presented to the hospital with a chief complaint of feeling tired and not having any energy. She also reports having shortness of breath. She denied any chest pain or pressure. Patient was found to be in acute CHF and was started on IV Lasix. She reports improvement in her breathing today. She reports that she saw her primary continuous loft operator at the beginning of this year. She reports having a chemical stress test and an echocardiogram at the beginning of this year which were normal to her knowledge DIAGNOSTICS: - EKG reveals sinus mechanism with no signs of acute ischemia. - Chest xray clinical correlation recommended for congestive heart failure. - Laboratory data: WBC 14.80. Hemoglobin 15.0. Platelet count 126. Sodium 139. Potassium 4.2. BUN 25. Creatinine 1.30. proBNP 4340. Troponin negative x 1. - Current home cardiac medications include Lasix 40 mg daily, Eliquis 2.5 mg twice a day, Jardiance 10 mg daily, lisinopril 10 mg daily, metoprolol succinate 100 mg twice daily. - No previous echocardiogram, stress test, or cardiac catheterization available in EMR for review 11/08/2024 Patient examined this morning at bedside. Patient currently denies chest pain or pressure. She reports improvement in her shortness of breath. She remains on IV Lasix. Creatinine today increased to 1.43. Blood pressure in the 90s. Patient still requiring supplemental oxygen to maintain oxygen saturations greater than 92%. Gallbladder ultrasound completed revealing small cystlike area within the posterior body of the pancreas. Neoplasm not excluded. 11/09/2024 Patient examined this morning at the bedside. Patient currently denies chest pain or pressure. She denies shortness of breath at rest. She does report shortness of breath with ambulation to the bathroom. Vital signs are stable. MRI is pending. PHYSICAL EXAM: VITAL SIGNS: Reviewed. GENERAL: Well-developed in no acute distress. HEENT: Head is normocephalic. Pupils are equal, round. Sclerae anicteric. Mucous membranes of the mouth are moist. Neck supple. No JVD or thyromegaly LUNGS: Respirations even and unlabored. Lungs diminished bilaterally HEART: Regular rate and rhythm. S1 and S2 heard. ABDOMEN: Soft. Nondistended. Nontender. EXTREMITIES: Normal range of motion. No clubbing or cyanosis. Peripheral pulses intact. No lower extremity edema NEUROLOGIC: Awake and alert. Oriented x 3. 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 Await results. Continue oral Lasix 40 mg in the morning. Add 20 mg in the afternoon x 7 days Continue Eliquis, Farxiga, lisinopril, and metoprolol Oncology consulted. MRI of the pancreas pending. No further inpatient recommendations from a cardiac standpoint We will sign off. Please reconsult if needed. Nurse practitioner note has been reviewed by physician. Signing provider agrees with the documented findings, assessment, and plan of care documented by NETWORKING ENGINEER as a scribe. Objective - Vital Signs Vital signs: Vital Signs Temp 97.5 F L 11/09/24 07:45 Pulse 60 11/09/24 07:45 Resp 16 11/09/24 07:45 BP 130/70 11/09/24 07:45 Pulse Ox 95 11/09/24 09:25 FiO2 Intake & Output 11/08/24 11/09/24 11/09/24 18:59 06:59 18:59 Output Total 800 800 Balance -800 -800 Weight 129 kg Output: Urine 800 800 Other: Voiding Method External Catheter External Catheter External Catheter # Bowel Movements 1 - Labs CBC & Chem 7: 11/09/24 05:46 11/09/24 05:46 Labs: Abnormal Lab Results - Last 24 Hours (Table) 11/09/24 11/09/24 Range/Units 05:46 05:46 Hgb 15.3 H (12.0-15.0) g/dL Hct 46.6 H (37.2-46.3) % MCV 103.6 H (80.0-97.0) fL MCH 34.0 H (27.0-32.0) pg Potassium 5.3 H (3.5-5.1) mmol/L Chloride 97 L (98-107) mmol/L Carbon Dioxide 36 H (22-30) mmol/L BUN 29 H (7-17) mg/dL Creatinine 1.33 H (0.52-1.04) mg/dL Total Bilirubin 1.5 H (0.2-1.3) mg/dL Albumin 3.2 L (3.5-5.0) g/dL
--- NOTE | 2024-11-09 14:28 | P.PN ---
Subjective Progress Note Date: 11/09/24 Hospital Course: Patient is a very pleasant 78-year-old female with a past medical history of congestive heart failure, paroxysmal atrial fibrillation anticoagulated on Eliquis, hypertension, depression, H/O breast cancer s/p lumpectomy and radiation who presented to the ED on 11/06/2024 for shortness of breath, bilateral lower extremity edema and fatigue. Patient reported she has been compliant with her diuretics and follows with bottling room worker Dr. Rodriguez and states she had a echo and stress test done a few months ago at his office. Upon arrival to our facility, patient underwent evaluation in the emergency department. Vital signs on arrival show blood pressure 129/60, heart rate 85, respiratory rate 30, temp 99.5 F, and SpO2 of 93% on room air. EKG completed showing normal sinus rhythm at 72 bpm. Chest x-ray showing prominent pulmonary vasculature with diffuse mi ld increased lung markings consistent with pulmonary edema. Labs completed and reviewed. CBC showing leukocytosis with WBC count of 12.84, hemoglobin 17.1, hematocrit 49.4, MCV and MCH of 34.7. Of 100.2, BMP showing elevated renal function with BUN of 22, creatinine 1.16, GFR 46. Blood glucose 111. Liver profile showing hyperbilirubinemia with total bili of 1.5. Troponin 0.026 and proBNP 4340. Influenza A, influenza B, RSV, and COVID PCR negative. Procalcitonin negative at less than 0.20. Order was placed for gallbladder ultrasound secondary to leukocytosis, hyperbilirubinemia, and low-grade fever. Incidental finding on gallbladder ultrasound revealed a small cystlike area within the posterior body of the pancreas unable to rule out neoplastic process. Patient does have a known history of breast cancer. Physical exam: Patient seen and fully evaluated at bedside this morning. She is currently resting comfortably on 2 L O2 via nasal cannula with SpO2 of 96%. She reports feeling at baseline. She denies having shortness of breath at rest but daniel nues to have moderate exertional dyspnea with minimal exertion such as walking to the restroom. She denies having any chest pain, palpitations, cough or congestion, abdominal pain, nausea, or any other complaints at this time. Patient does report feeling hungry as she is awaiting to go down for MRI/MRCP later today. Vital signs reviewed and stable. General: Nontoxic, no distress and appears stated age. Derm: Skin warm and dry, normal coloration for ethnicity. Head: Atraumatic, normocephalic and symmetric. Eyes: EOM's intact, no lid lag, and anicteric sclera Mouth: no lip lesions, mucus membranes moist Cardiovascular: regular rate and rhythm with normal S1S2, no murmur, positive posterior tibial pulses bilaterally, and cap refill < 2 seconds. Lungs: Respirations even, regular, and unlabored on liters O2 via nasal cannula. Lungs diminished, no rhonchi, no rales, no wheezing, and no accessory muscle usage. Abdominal: soft, nontender to palpation, no guarding, no appreciable or ganomegaly Ext: No gross muscle atrophy, scant bilateral lower extremity edema with venous stasis discoloration. Movement and sensation intact. Neuro: Speech clear, face symmetrical and CN II-XII grossly intact with no noted focal neuro deficits Psych: Alert and oriented to person, place, time, and situation. Appropriate and pleasant affect. Assessment and Plan of Care: Acute heart failure exacerbation, unknown type pending echocardiogram Paroxysmal atrial fibrillation Hypertension Hyperlipidemia -Cardiology following, discussed plan of care with cardiac COMMERCIAL ADMINISTRATOR stating no further inpatient recommendations from cardiac standpoint and clearing patient from cardiac perspective at this time. -Telemetry monitoring -Continue daily medication regimen with Lasix 40 mg daily, Eliquis 5 mg twice daily, Farxiga 5 mg daily, lisinopril 10 mg daily, and metoprolol 100 mg twice daily. -Continued close monitoring of electrolytes while diuresing. -Echocardiogram was completed yesterday morning and we are currently waiting reports/results. Pancreatic cystlike area, Incidental Finding Hyperbilirubinemia Thrombocytopenia Polycythemia - Order was placed for gallbladder ultrasound secondary to leukocytosis, hyperbilirubinemia, and low-grade fever. Incidental finding on gallbladder ultrasound revealed a small cystlike area within the posterior body of the pancreas unable to rule out neoplastic process. Patient does have a known history of breast cancer. - Consult placed to oncology. Discussed findings with oncology COMMERCIAL ADMINISTRATOR and per their recommendations order placed for MRI/MRCP of pancreas for further evaluation. History of breast cancer status postlumpectomy and radiation -Continue anastrozole 1 mg daily Anxiety with depression -Continue BuSpar 22.5 mg twice daily and Zoloft 100 mg daily. Data and imaging reviewed: Vital signs reviewed. Blood pressure 130/70, heart rate 60, respiratory rate 16, temp 97.5 F, and SpO2 of 95% on 2 L. - Labs completed and reviewed. CBC showing resolution of leukocytosis with WBC count of 6.58 and continued glycemia 15.3, crit 46.6, MCV 103.6, and MCH of 34.0. BMP showing mild hyperkalemia with potassium of 5.3, chloride of 97, bicarb of 36, and anion gap of 5 with slight improvement of renal function of BUN 29, creatinine 1.33, GFR of 39. Liver profile showing continued hyperbilirubinemia with total bili of 1.5 otherwise normal findings. Albumin was low at 3.2. Patient is scheduled to undergo MRI/MRCP of pancreas later today. CODE STATUS: Full code DVT prophylaxis: Eliquis Discussed with: Patient, RN, oncology COMMERCIAL ADMINISTRATOR and cardiac COMMERCIAL ADMINISTRATOR Anticipated discharge date: Pending clinical course Anticipated discharge place: Home Patient was seen independently by Nurse Pracitioner. This document was prepared using [employer] dictation software. Please allow for errors in nutritional services host, while rare they do occur. Amos Stephens, COMMERCIAL ADMINISTRATOR rendered care for this patient independently, reviewed the findings and plan as documented in the note above and agree with plan. I did not physically speak with or examine the patient on this date. Objective - Vital Signs Vital signs: Vital Signs Temp 98.7 F 11/09/24 01:30 Pulse 72 11/09/24 01:30 Resp 16 11/09/24 01:30 BP 143/80 11/09/24 01:30 Pulse Ox 95 11/09/24 01:30 FiO2 Intake & Output 11/08/24 11/09/24 11/09/24 18:59 06:59 18:59 Output Total 800 800 Balance -800 -800 Weight 129 kg Output: Urine 800 800 Other: Voiding Method External Catheter External Catheter # Bowel Movements 1 - Labs CBC & Chem 7: 11/09/24 05:46 11/09/24 05:46 Labs: Abnormal Lab Results - Last 24 Hours (Table) 11/09/24 11/09/24 Range/Units 05:46 05:46 Hgb 15.3 H (12.0-15.0) g/dL Hct 46.6 H (37.2-46.3) % MCV 103.6 H (80.0-97.0) fL MCH 34.0 H (27.0-32.0) pg Potassium 5.3 H (3.5-5.1) mmol/L Chloride 97 L (98-107) mmol/L Carbon Dioxide 36 H (22-30) mmol/L BUN 29 H (7-17) mg/dL Creatinine 1.33 H (0.52-1.04) mg/dL Total Bilirubin 1.5 H (0.2-1.3) mg/dL Albumin 3.2 L (3.5-5.0) g/dL
[2024-11-09] MEDS: FUROSEMIDE 20 MG TAB PO SCH (16:39)
--- NOTE | 2024-11-09 17:26 | CA ---
Transthoracic Echo Report Name: Mariah Wolf Age: 78 Gender: F : 1945 Exam Date: 11/08/2024 09:36 Exam Location: [facility] Ht (in): 66 Wt (lb): 293 Ordering Physician: Amos Stephens Attending/Referring Phys: Social Sciences Chair Risa Garcia RDCS Procedure CPT: Indications: chf Cardiac Hx: Technical Quality: Fair Contrast 1: Total Dose (mL): Contrast 2: Total Dose (mL): MEASUREMENTS (Male / Female) Normal Values 2D ECHO LV Diastolic Diameter PLAX 4.6 cm 4.2 - 5.9 / 3.9 - 5.3 cm LV Systolic Diameter PLAX 3.0 cm IVS Diastolic Thickness 1.5 cm 0.6 - 1.0 / 0.6 - 0.9 cm LVPW Diastolic Thickness 0.9 cm 0.6 - 1.0 / 0.6 - 0.9 cm LV Relative Wall Thickness 0.5 LVOT Diameter 2.1 cm LV Diastolic Volume MOD BP 101.0 cm??? 67 - 155 / 56 - 104 cm??? LV Systolic Volume MOD BP 34.0 cm??? 22 - 58 / 19 - 49 cm??? LV Ejection Fraction MOD BP 66.3 % >= 55 % LV Cardiac Index MOD BP 1961.3 cm???/min???m??? LV Diastolic Volume MOD 4C 86.4 cm??? LV Systolic Volume MOD 4C 29.5 cm??? LV Ejection Fraction MOD 4C 65.8 % LV Cardiac Index MOD 4C 1665.6 cm???/min???m??? LV Diastolic Length 4C 7.9 cm LV Systolic Length 4C 6.4 cm LV Diastolic Volume MOD 2C 115.3 cm??? LV Systolic Volume MOD 2C 36.9 cm??? LV Ejection Fraction MOD 2C 68.0 % LV Cardiac Index MOD 2C 2293.1 cm???/min???m??? LV Diastolic Length 2C 8.1 cm LV Systolic Length 2C 7.0 cm LA Volume 80.8 cm??? 18 - 58 / 22 - 52 cm??? LA Volume Index 31.5 cm???/m??? 16 - 28 cm???/m??? DOPPLER AV Peak Velocity 140.0 cm/s AV Peak Gradient 7.8 mmHg AV Mean Velocity 106.9 cm/s AV Mean Gradient 4.9 mmHg AV Velocity Time Integral 27.3 cm LVOT Peak Velocity 97.5 cm/s LVOT Peak Gradient 3.8 mmHg LVOT Velocity Time Integral 17.7 cm LVOT Stroke Volume 59.0 cm??? LVOT Stroke Volume Index 25.1 ml/m??? LVOT Cardiac Index 1727.6 cm???/min???m??? AV Area Cont Eq vti 2.2 cm??? AV Area Cont Eq pk 2.3 cm??? TR Peak Velocity 309.4 cm/s TR Peak Gradient 38.3 mmHg Right Atrial Pressure 10.0 mmHg Pulmonary Artery Systolic Pressu 48.3 mmHg Right Ventricular Systolic Press 48.3 mmHg PV Peak Velocity 105.4 cm/s PV Peak Gradient 4.4 mmHg FINDINGS Left Ventricle Left ventricular ejection fraction is estimated at 60-65 %. Moderately increased septal wall thickness.no obvious regional wall motion abnormalities. Left ventricular cavity size normal. Right Ventricle Right ventricular dilatation. Normal right ventricular global systolic function. Moderate pulmonary hypertension. Right Atrium Mild right atrial dilatation. Left Atrium Mildly increased left atrial volume. Mildly increased left atrial area. Mitral Valve Mitral valve thickened. No mitral stenosis. No evidence for mitral valve prolapse. Trace to mild mitral regurgitation. Aortic Valve Trileaflet aortic valve. Diffuse thickening (sclerosis) of the aortic valve cusps without reduced excursion. No aortic stenosis. Trace aortic regurgitation. Tricuspid Valve Structurally normal tricuspid valve. No tricuspid stenosis. Mild tricuspid regurgitation. Pulmonic Valve Structurally normal pulmonic valve. No pulmonic stenosis. Trace pulmonic regurgitation. Pericardium No pericardial effusion. Aorta Normal size aortic root and proximal ascending aorta. CONCLUSIONS LVEF 60% Moderate concentric LVH. No obvious regional wall motion abnormality Mild RV dilatation with normal systolic function. RVSP estimated at 48 mmHg. Moderate pulmonary hypertension Mild biatrial dilatation Mild tricuspid regurgitation Calcific sclerosis of aortic valve Previewed by: Dr Devin Kirkpatrick (Electronically Signed) Final Date: 09 November 2024 17:25
--- NOTE | 2024-11-09 18:48 | MR ---
EXAMINATION TYPE: MR pancreas / mrcp wo/w con DATE OF EXAM: 11/09/2024 3:00 PM COMPARISON: None. CLINICAL INDICATION: Female, 78 years old with history of pancreatic cyst/mass noted on US, Pancreati c cyst, abnormal US. TECHNIQUE MRI ABDOMEN WITH CONTRAST: Multiplanar multi-sequence imaging was performed without and wit h IV contrast/gadolinium. The patient was given 13.5 cc Gadobutrol gadolinium intravenously and maury joe post-VIBE (volumetric interpolated breath-hold gradient recall echo) imaging was performed. IV Contrast: 13.5 mL Gadobutrol (None, if empty) TECHNIQUE MRCP ABDOMEN WITHOUT CONTRAST: Multi planar, T2-weighted imaging with and without fat satur ation and chemical shift imaging was performed of the abdomen. Then, heavily T2 weighted imaging (binh f-Fourier acquisition single-shot turbo spin-echo) was utilized in order to study the biliary system. Maximum intensity projection images were reconstructed from the original data of the biliary tree. 3D reconstructions and MIP imaging performed on a separate workstation. FINDINGS: LOWER CHEST: The heart is mildly enlarged for size. MRCP: * The intrahepatic ducts there is a mild central dilation. * The extrahepatic ducts have a normal appearance. * The common hepatic duct measures 12 mm in size. * The common bile duct at the level of the pancreatic head measures 7 mm in size. * The pancreatic duct is normal. * The gallbladder appears demonstrates some layering gallstones as seen on ultrasound. Abdomen: Liver: No evidence for cirrhosis. Signal dropout on chemical shift out of phase imaging. Pancreas: Pancreatic body height T2 signal 18 x 6 mm on coronal imaging and 10 mm on axial imaging mm cystic lesion. No ductal dilation. No evidence for solid mass. Spleen: Normal for size. Adrenal glands: Left adrenal 16 mm nodule with some loss of signal on chemical shift of phase imaging . Ascending no right adrenal nodules. Kidneys: No evidence for obstructive uropathy. No suspicious renal masses. Scattered simple appearing high T2 signal renal cyst. No follow-up recommended. Stomach and Bowel: No evidence for bowel wall thickening or evidence for obstruction. Scattered colon ic diverticula. Retroperitoneum/Peritoneum: No evidence of pneumoperitoneum or free fluid. Vasculature: No aortic aneurysm. Musculoskeletal: The osseous structures appear intact. Mild scoliosis changes of the spine apex L3 on the right. Lymph Nodes: No gross evidence for lymphadenopathy. Abdominal wall: Unremarkable. IMPRESSION: 1. No evidence to suggest ductal stricture or choledocholithiasis. 2. Hepatic steatosis. 3. 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 4. Pancreatic body 18 mm cystic lesion possibly representing sequela of prior pancreatitis versus si de branch intraductal mucinous neoplasm versus other cystic neoplasms. Attention on follow-up imaging in one year with MRI MRCP with contrast to ensure stability. 5. Mild cardiomegaly. 6. 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 7. Cholelithiasis. 8. Colonic diverticulosis. [facility], , 11/09/2024 6:46 PM
[2024-11-10 05:11] LABS: HCT 45.9 % (37.2-46.3); HGB 15.5 g/dL (12.0-15.0); MCH 34.6 pg (27.0-32.0); MCHC 33.8 g/dL (32.0-37.0); MCV 102.5 fL (80.0-97.0); Mean Platelet Volume 10.3 fL (9.5-12.2); Platelet Count 160 10*3/uL (140-440); RBC 4.48 10*6/uL (4.10-5.20); RDW 13.2 % (11.5-14.5); WBC 6.48 10*3/uL (4.50-10.00)
[2024-11-10 05:20] LABS: ALT 14 U/L (4-34); AST 18 U/L (14-36); African American GFR (CKD) 54 (>60 ml/min/1.73 sqM); Albumin 3.6 g/dL (3.5-5.0); Alkaline Phosphatase 74 U/L (38-126); Anion Gap 8 mmol/L; Blood Urea Nitrogen 28 mg/dL (7-17); Calcium 8.8 mg/dL (8.4-10.2); Carbon Dioxide 34 mmol/L (22-30); Chloride 95 mmol/L (98-107); Glucose 94 mg/dL (74-99); Magnesium 2.1 mg/dL (1.6-2.3); Non-African American GFR(CKD) 47 (>60 ml/min/1.73 sqM); Potassium 4.8 mmol/L (3.5-5.1); Sodium 137 mmol/L (137-145); Total Bilirubin 1.4 mg/dL (0.2-1.3); Total Protein 6.7 g/dL (6.3-8.2)
--- NOTE | 2024-11-10 17:02 | P.PN ---
Subjective Progress Note Date: 11/10/24 Hospital Course: Patient is a very pleasant 78-year-old female with a past medical history of congestive heart failure, paroxysmal atrial fibrillation anticoagulated on Eliquis, hypertension, depression, H/O breast cancer s/p lumpectomy and radiation who presented to the ED on 11/06/2024 for shortness of breath, bilateral lower extremity edema and fatigue. Patient reported she has been compliant with her diuretics and follows with engineering design manager Dr. Rodriguez and states she had a echo and stress test done a few months ago at his office. Upon arrival to our facility, patient underwent evaluation in the emergency department. Vital signs on arrival show blood pressure 129/60, heart rate 85, respiratory rate 30, temp 99.5 F, and SpO2 of 93% on room air. EKG completed showing normal sinus rhythm at 72 bpm. Chest x-ray showing prominent pulmonary vasculature with diffuse mi ld increased lung markings consistent with pulmonary edema. Labs completed and reviewed. CBC showing leukocytosis with WBC count of 12.84, hemoglobin 17.1, hematocrit 49.4, MCV and MCH of 34.7. Of 100.2, BMP showing elevated renal function with BUN of 22, creatinine 1.16, GFR 46. Blood glucose 111. Liver profile showing hyperbilirubinemia with total bili of 1.5. Troponin 0.026 and proBNP 4340. Influenza A, influenza B, RSV, and COVID PCR negative. Procalcitonin negative at less than 0.20. Order was placed for gallbladder ultrasound secondary to leukocytosis, hyperbilirubinemia, and low-grade fever. Incidental finding on gallbladder ultrasound revealed a small cystlike area within the posterior body of the pancreas unable to rule out neoplastic process. Patient does have a known history of breast cancer. MRI/MRCP with and without contrast was completed reporting probable bilateral Bosniak type I renal cysts and a pancreatic body 18 mm cystic lesion possibly representing sequela of prior pancreatitis versus sidebranch intraductal mucinous neoplasm versus other cystic neoplasms and a left probable lipid rich adrenal adenoma Physical exam: Patient seen and fully evaluated at bedside this morning. She is currently resting comfortably on 2 L O2 via nasal cannula with SpO2 of 95%. She reports feeling slightly short of breath along with a mild headache this morning. She denies having any changes in vision, hearing, chest pain, palpitations, or any other complaints at this time. Discussed MRI/MRCP findings with patient and told her that hematology/oncology would also come to talk with her regarding follow-up imaging/plan. Vital signs reviewed and stable. General: Nontoxic, no distress and appears stated age. Derm: Skin warm and dry, normal coloration for ethnicity. Head: Atraumatic, normocephalic and symmetric. Eyes: EOM's intact, no lid lag, and anicteric sclera Mouth: no lip lesions, mucus membranes moist Cardiovascular: regular rate and rhythm with normal S1S2, no murmur, positive posterior tibial pulses bilaterally, and cap refill < 2 seconds. Lungs: Respirations even, regular, and unlabored on liters O2 via nasal cannula. Lungs diminished, no rhonchi, no rales, no wheezing, and no accessory muscle usage. Abdominal: soft, nontender to palpation, no guarding, no appreciable organomegaly Ext: No gross muscle atrophy, scant bilateral lower extremity edema with venous stasis discoloration. Movement and sensation intact. Neuro: Speech clear, face symmetrical and CN II-XII grossly intact with no noted focal neuro deficits Psych: Alert and oriented to person, place, time, and situation. Appropriate and pleasant affect. Assessment and Plan of Care: Acute diastolic heart failure exacerbation Paroxysmal atrial fibrillation Hypertension Hyperlipidemia -Cardiology following, discussed plan of care with cardiac NEWSPAPER STUFFER stating no further inpatient recommendations from cardiac standpoint and clearing patient from cardiac perspective at this time. -Telemetry monitoring -Continue daily medication regimen with Lasix 40 mg daily, Eliquis 5 mg twice daily, Farxiga 5 mg daily, lisinopril 10 mg daily, and metoprolol 100 mg twice daily. -Continued close monitoring of electrolytes while diuresing. -Echocardiogram completed showing EF of 60% with mild right ventricular dilation, moderate pulmonary hypertension, mild biatrial dilation, and mild tricuspid regurgitation with calcific sclerosis of the aortic valve. Pancreatic cystlike lesion, Incidental Finding Hyperbilirubinemia Thrombocytopenia Polycythemia - Order was placed for gallbladder ultrasound secondary to leukocytosis, hyper bilirubinemia, and low-grade fever. Incidental finding on gallbladder ultrasound revealed a small cystlike area within the posterior body of the pancreas unable to rule out neoplastic process. Patient does have a known history of breast cancer. -MRI/MRCP with and without contrast was completed reporting probable bilateral Bosniak type I renal cysts and a pancreatic body 18 mm cystic lesion possibly representing sequela of prior pancreatitis versus sidebranch intraductal mucinous neoplasm versus other cystic neoplasms and a left probable lipid rich adrenal adenoma -Oncology following, discussed MRI/MRCP findings with oncology NEWSPAPER STUFFER and stated they would go and talk with patient and update on plan of care. History of breast cancer status postlumpectomy and radiation -Continue anastrozole 1 mg daily Anxiety with depression -Continue BuSpar 22.5 mg twice daily and Zoloft 100 mg daily. Data and imaging reviewed: Vital signs reviewed. Blood pressure 127/82, heart rate 66, respiratory rate 16, temp 98.1 F, and SpO2 of 95% on 2 L. - Labs completed and reviewed. CBC showing continued polycythemia with hemoglobin of 15.5. BMP showing metabolic alkalosis with chloride of 97, bicarb of 34, and anion gap of 8. Renal function continues to slowly improve with BUN of 28, creatinine of 1.14, GFR 47. Magnesium 2.1. In total bili remains elevated but with continued improvement down to 1.4 this morning. MRI/MRCP with and without contrast was completed reporting probable bilateral B osniak type I renal cysts and a pancreatic body 18 mm cystic lesion possibly representing sequela of prior pancreatitis versus sidebranch intraductal mucinous neoplasm versus other cystic neoplasms and a left probable lipid rich adrenal adenoma CODE STATUS: Full code DVT prophylaxis: Eliquis Discussed with: Patient, RN, oncology NEWSPAPER STUFFER Anticipated discharge date: Pending clinical course Anticipated discharge place: Home Patient was seen independently by Nurse Pracitioner. This document was prepared using [employer] dictation software. Please allow for errors in oceanology teacher, while rare they do occur. Amos Stephens NEWSPAPER STUFFER rendered care for this patient independently, reviewed the findings and plan as documented in the note above and agree with plan. I did not physically speak with or examine the patient on this date. Objective - Vital Signs Vital signs: Vital Signs Temp 98.1 F 11/10/24 07:30 Pulse 66 11/10/24 07:30 Resp 16 11/10/24 07:30 BP 127/82 11/10/24 07:30 Pulse Ox 89 L 11/10/24 07:30 FiO2 Intake & Output 11/09/24 11/10/24 11/10/24 18:59 06:59 18:59 Intake Total 118 Output Total 1200 1000 Balance -1200 -1000 118 Intake: Oral 118 Output: Urine 1200 1000 Other: Voiding Method External Catheter External Catheter - Labs CBC & Chem 7: 11/10/24 03:54 11/10/24 03:54 Labs: Abnormal Lab Results - Last 24 Hours (Table) 11/10/24 11/10/24 Range/Units 03:54 03:54 Hgb 15.5 H (12.0-15.0) g/dL MCV 102.5 H (80.0-97.0) fL MCH 34.6 H (27.0-32.0) pg Chloride 95 L (98-107) mmol/L Carbon Dioxide 34 H (22-30) mmol/L BUN 28 H (7-17) mg/dL Creatinine 1.14 H (0.52-1.04) mg/dL Total Bilirubin 1.4 H (0.2-1.3) mg/dL
--- NOTE | 2024-11-10 21:45 | P.PN ---
Subjective Progress Note Date: 11/10/24 No acute events overnight. Pt reporting feeling improved. Objective - Vital Signs Vital signs: Vital Signs Temp 98.9 F 11/10/24 14:40 Pulse 64 11/10/24 14:40 Resp 18 11/10/24 14:40 BP 117/81 11/10/24 14:40 Pulse Ox 95 11/10/24 14:40 FiO2 Intake & Output 11/09/24 11/10/24 11/10/24 18:59 06:59 18:59 Intake Total 236 Output Total 1200 1000 Balance -1200 -1000 236 Intake: Oral 236 Output: Urine 1200 1000 Other: Voiding Method External Catheter External Catheter External Catheter # Voids 4 # Bowel Movements 1 - Constitutional General appearance: Present: no acute distress - EENT Eyes: Present: anicteric sclerae, EOMI ENT: Present: hearing grossly normal - Respiratory Details: breathing is even and unlabored - Cardiovascular Details: skin warm and dry - Gastrointestinal General gastrointestinal: Present: soft. Absent: tenderness - Integumentary Integumentary: Absent: cyanotic, jaundiced - Psychiatric Psychiatric: Present: A&O x's 3 - Labs CBC & Chem 7: 11/10/24 03:54 11/10/24 03:54 Labs: Abnormal Lab Results - Last 24 Hours (Table) 11/10/24 11/10/24 Range/Units 03:54 03:54 Hgb 15.5 H (12.0-15.0) g/dL MCV 102.5 H (80.0-97.0) fL MCH 34.6 H (27.0-32.0) pg Chloride 95 L (98-107) mmol/L Carbon Dioxide 34 H (22-30) mmol/L BUN 28 H (7-17) mg/dL Creatinine 1.14 H (0.52-1.04) mg/dL Total Bilirubin 1.4 H (0.2-1.3) mg/dL Assessment and Plan (1) Pancreatic abnormality Current Visit: Yes Status: Acute Priority: High Code(s): Q45.3 - OTH CONGENITAL MALFORMATIONS OF PANCREAS AND PANCREATIC DUCT SNOMED Code(s): 3750980 Plan: Pancreatic abnormality - Patient admitted with complaints of shortness of breath. She was noted to have low-grade fevers, slightly elevated white count and elevated bilirubin. This led to further investigations. Gallbladder ultrasound reports liver at 20 cm, also a concerning finding in the pancreatic head. - Case discussed with Internal Medicine Nurse Practitioner. Plans at this time are to obtain MRCP to further clarify the finding in the pancreatic head. Based on those findings further recommendations will follow. If it appears that the lesion in the pancreas is concerning for malignancy and if no other unusual findings are noted in the area, it would be best for patient to be referred for surgical evaluation-biopsy, possible Whipple. -MRI pancreas/MRCP with and without contrast showed probable bilateral Bosniak type I renal cyst. Pancreatic body 18 mm cystic lesion possibly representing sequela of prior pancreatitis versus sidebranch intraductal mucinous neoplasm versus other cystic neoplasms. Findings appear benign in nature. Discussed with patient options, with repeat scan in 6 months to reevaluate versus undergoing EUS/biopsy. Patient states she would prefer to undergo biopsy with her prior history of breast cancer. Patient is scheduled to undergo EGD and colonoscopy on 11/[address] at [facility]. Will reach out to his office to see if EUS can be obtained at the same time. If not patient will need to be referred to [facility] -The above was reviewed with the patient. She verbalized understanding. She is agreeable to further workup. All questions and concerns were addressed Case discussed with admitting team Doctor attests: I performed a history and physical examination of this patient, developed impression and plan of care. Discussed with dictator. I agree with dictators note, documented as a scribe
[2024-11-11 08:17] VITALS: BP 126/66; PULSE 104; RESP 17; TEMP 98.1
--- NOTE | 2024-11-11 18:34 | P.DS ---
Providers Date of admission: 11/06/24 17:05 Expected date of discharge: 11/11/24 Attending physician: Los Hare MD Consults: 11/08/24 08:34 Consult Physician Routine Consulting Provider: Milan Milan Consult Reason/Comments: Pancreatic cyst/mass Do you want consulting provider notified?: Yes Primary care physician: Carlos Cordero DO Hospital Course: Discharge Diagnosis: Acute diastolic heart failure exacerbation. Echocardiogram completed showing EF of 60% with mild right ventricular dilation, moderate pulmonary hypertension, mild biatrial dilation, and mild tricuspid regurgitation with calcific sclerosis of the aortic valve. Continue daily medication regimen with Lasix 40 mg daily, Eliquis 5 mg twice daily, Farxiga 5 mg daily, lisinopril 10 mg daily, and metoprolol 100 mg twice daily. Patient cleared from cardiac perspective recommending outpatient follow-up in our office in 1 week. Paroxysmal atrial fibrillation Hypertension Hyperlipidemia Pancreatic cystlike lesion, Incidental Finding. MRI/MRCP with and without contrast was completed reporting probable bilateral Bosniak type I renal cysts and a pancreatic body 18 mm cystic lesion possibly representing sequela of prior pancreatitis versus sidebranch intraductal mucinous neoplasm versus other cystic neoplasms and a left probable lipid rich adrenal adenoma. Patient was evaluated by oncology and discussed options of monitoring versus biopsy. patient would like to undergo biopsy and is scheduled to undergo EGD and colonoscopy on 11/23/2024 with her language translator, Dr. Baker at [facility]. Oncology team is reaching out to his office to see if EUS can be obtained at the same time. If not, they will notify patient and referr her to [facility] to obtain biopsy of pancreatic head cyst. Hyperbilirubinemia Thrombocytopenia Polycythemia History of breast cancer status postlumpectomy and radiation. Continue anastrozole 1 mg daily Anxiety with depression. Continue BuSpar 22.5 mg twice daily and Zoloft 100 mg daily. Hospital Course: Patient is a very pleasant 78-year-old female with a past medical history of congestive heart failure, paroxysmal atrial fibrillation anticoagulated on Eliquis, hypertension, depression, H/O breast cancer s/p lumpectomy and radiation who presented to the ED on 11/06/2024 for shortness of breath, bilateral lower extremity edema and fatigue. Patient reported she has been compliant with her diuretics and follows with college athletic director Dr. Rodriguez and states she had a echo and stress test done a few months ago at his office. Upon arrival to our facility, patient underwent evaluation in the emergency department. Vital signs on arrival show blood pressure 129/60, heart rate 85, respiratory rate 30, temp 99.5 F, and SpO2 of 93% on room air. EKG completed showing normal sinus rhythm at 72 bpm. Chest x-ray showing prominent pulmonary vasculature with diffuse mild increased lung markings consistent with pulmonary edema. Labs completed and reviewed. CBC showing leukocytosis with WBC count of 12.84, hemoglobin 17.1, hematocrit 49.4, MCV and MCH of 34.7. Of 100.2, BMP showing elevated renal function with BUN of 22, creatinine 1.16, GFR 46. Blood glucose 111. Liver profile showing hyperbilirubinemia with total bili of 1.5. Troponin 0.026 and proBNP 4340. Influenza A, influenza B, RSV, and COVID PCR negative. Procalcitonin negative at less than 0.20. Order was placed for gallbladder ultrasound secondary to leukocytosis, hyperbilirubinemia, and low-grade fever. Incidental finding on gallbladder ultrasound revealed a small cystlike area within the posterior body of the pancreas unable to rule out neoplastic process. Patient does have a known history of breast cancer. MRI/MRCP with and without contrast was completed reporting probable bilateral Bosniak type I renal cysts and a pancreatic body 18 mm cystic lesion possibly representing sequela of prior pancreatitis versus sidebranch intraductal mucinous neoplasm versus other cystic neoplasms and a left probable lipid rich adrenal adenoma. Patient was evaluated by oncology and discussed options of monitoring versus biopsy. patient would like to undergo biopsy and is scheduled to undergo EGD and colonoscopy on 11/23/2024 with her language translator, Dr. Baker at [facility]. Oncology team is reaching out to his office to see if EUS can be obtained at the same time. If not, they will notify patient and referr her to [facility] to obtain biopsy of pancreatic head cyst. Echocardiogram completed showing EF of 60% with mild right ventricular dilation, moderate pulmonary hypertension, mild biatrial dilation, and mild tricuspid regurgitation with calcific sclerosis of the aortic valve. Continue daily medication regimen with Lasix 40 mg daily, Eliquis 5 mg twice daily, Farxiga 5 mg daily, lisinopril 10 mg daily, and metoprolol 100 mg twice daily. Patient cleared from cardiac perspective recommending outpatient follow-up in our office in 1 week. Patient is medically optimized at this time for discharge at this time. Medication changes made during this admission include decreasing metoprolol to 50 mg twice daily and increasing Eliquis to 5 mg twice daily.. Secondary to isolated episode of hyperkalemia patient instructed not to take potassium supplements unless further indicated outpatient by PCP with repeat labs. Patient to follow-up outpatient with PCP in 1 to 2 days and college athletic director in 1 week. Physical exam: Vital signs reviewed and stable. General: Nontoxic, no distress and appears stated age. Derm: Skin warm and dry, normal coloration for ethnicity. Head: Atraumatic, normocephalic and symmetric. Eyes: EOM's intact, no lid lag, and anicteric sclera Mouth: no lip lesions, mucus membranes moist Cardiovascular: regular rate and rhythm with normal S1S2, no murmur, positive posterior tibial pulses bilaterally, and cap refill < 2 seconds. Lungs: Respirations even, regular, and unlabored on liters O2 via nasal cannula. Lungs diminished, no rhonchi, no rales, no wheezing, and no accessory muscle usage. Abdominal: soft, nontender to palpation, no guarding, no appreciable organomegaly Ext: No gross muscle atrophy, scant bilateral lower extremity edema with venous stasis discoloration. Movement and sensation intact. Neuro: Speech clear, face symmetrical and CN II-XII grossly intact with no noted focal neuro deficits Psych: Alert and oriented to person, place, time, and situation. Appropriate and pleasant affect. A total of 37 minutes of time were spent preparing this complex discharge summary. Pt was discharged on 11/11/2024 at 9:56 AM Patient was seen independently by Nurse Practitioner. This document was prepared using [employer] dictation software. Please allow for errors in hybrid powertrain development engineer while rare they do occur. Amos Stephens NP rendered care for this patient independently, reviewed the findings and plan as documented in the note above. I did not physically speak with or examine the patient on this date. Patient Condition at Discharge: Stable Plan - Discharge Summary Discharge Rx Participant: No New Discharge Prescriptions: New Metoprolol Succinate (ER) [Toprol XL] 50 mg PO BID 30 Days #60 tab Apixaban [Eliquis] 5 mg PO BID 30 Days #60 tab Continue Multivitamins, Thera [Multivitamin (formulary)] 1 tab PO DAILY busPIRone HCL 22.5 mg PO BID Sertraline [Zoloft] 100 mg PO DAILY Furosemide [Lasix] 40 mg PO DAILY Empagliflozin [Jardiance] 10 mg PO DAILY Calcium Carbonate [Calcium] 600 mg PO DAILY Anastrozole [Arimidex] 1 mg PO DAILY lisinopriL 10 mg PO DAILY Discontinued Apixaban [Eliquis] 2.5 mg PO BID Potassium Chloride ER [K-Dur 20] 20 meq PO BID Metoprolol Succinate (ER) [Toprol Xl] 100 mg PO BID Discharge Medication List Anastrozole [Arimidex] 1 mg PO DAILY 11/06/24 [History] Calcium Carbonate [Calcium] 600 mg PO DAILY 11/06/24 [History] Empagliflozin [Jardiance] 10 mg PO DAILY 11/06/24 [History] Furosemide [Lasix] 40 mg PO DAILY 11/06/24 [History] Multivitamins, Thera [Multivitamin (formulary)] 1 tab PO DAILY 11/06/24 [History] Sertraline [Zoloft] 100 mg PO DAILY 11/06/24 [History] busPIRone HCL 22.5 mg PO BID 11/06/24 [History] lisinopriL 10 mg PO DAILY 11/06/24 [History] Apixaban [Eliquis] 5 mg PO BID 30 Days #60 tab 11/11/24 [Rx] Metoprolol Succinate (ER) [Toprol XL] 50 mg PO BID 30 Days #60 tab 11/11/24 [Rx] Follow up Appointment(s)/Referral(s): Devin Kirkpatrick MD [Medical Doctor] - 1 Week Carlos Cordero DO [Primary Care Provider] - 1-2 days Patient Instructions/Handouts: Heart Failure (DC) Activity/Diet/Wound Care/Special Instructions: Activity: As tolerated. Take breaks as needed. Diet: Heart healthy and carb consistent diet. Avoid salts, or foods with hidden salts such as canned or boxed foods and frozen dinners. Extra salt makes your heart work harder and traps the fluid in your body for longer. Special Instructions: Take all of your medications as directed and remember to keep all of your doctor's appointments and follow-up as needed. You are scheduled to undergo EGD and colonoscopy on 11/[address] Baker at [facility]. Oncology team is reaching out to his office to see if EUS can be obtained at the same time. If not, they will notify you and referr you to [facility] to obtain biopsy of pancreatic head cyst. Your Eliquis will need to be held prior to this procedure based upon the instructions Dr. Baker provides you. Thank you for allowing us to participate in your care, it was truly a pleasure having you for our patient!!! Discharge Disposition: HOME SELF-CARE
== END 2024-11-11 13:10 | disposition home or self-care (01) | DRG 291 ==
LOC: EC 15:35 → SUPCPDRO 15:35 → 6NMEDSUR 17:04 → OBSVTOIN 17:05 → 6NMEDSUR 18:37 → 1SOBS 18:42 → 6NMEDSUR 11-10 06:00
PROVIDERS: ADMIT Family Medicine; ATTEND Family Medicine
DX: I11.0 Hypertensive heart disease with heart failure (principal); I50.33 Acute on chronic diastolic (congestive) heart failure; E87.3 Alkalosis; D69.6 Thrombocytopenia, unspecified; K86.2 Cyst of pancreas; N17.9 Acute kidney failure, unspecified; I27.20 Pulmonary hypertension, unspecified; F32.A Depression, unspecified; I35.8 Other nonrheumatic aortic valve disorders; I48.0 Paroxysmal atrial fibrillation; E78.5 Hyperlipidemia, unspecified; E80.6 Other disorders of bilirubin metabolism; D75.1 Secondary polycythemia; F41.9 Anxiety disorder, unspecified; E87.5 Hyperkalemia; I95.9 Hypotension, unspecified; D72.829 Elevated white blood cell count, unspecified; N28.1 Cyst of kidney, acquired; Z85.3 Personal history of malignant neoplasm of breast; Z88.1 Allergy status to other antibiotic agents; Z79.811 Long term (current) use of aromatase inhibitors; Z79.01 Long term (current) use of anticoagulants; Z79.899 Other long term (current) drug therapy; Z92.3 Personal history of irradiation
CPT/HCPCS: 36415; 71046; 74183; 76705; 80053; 81003; 83605; 83735; 83880; 84145; 84484; 85025; 85027; 85610; 85730; 87636; 93005; 93306; 94760; 96374; 99285